=== PATIENT | female | born 1960 | race Caucasian/White ===

== ENCOUNTER 2018-11-04 08:55 | Emergency (ER) | payer MEDICAID ==
[~2018-11-04] VITALS: Ht 165.1 cm; Wt 68.9 kg
[2018-11-04] MEDS ORDERED: ALBUTER (09:12)
[2018-11-04] MEDS ORDERED: IBUPROFEN 800 MG (09:12)
[2018-11-04] MEDS ORDERED: ALBUTEROL SULFATE (09:12)
[2018-11-04] MEDS ORDERED: CEFDINIR 300 MG (09:12)
[2018-11-04] MEDS ORDERED: IPRATROPIUM (09:12)
[2018-11-04] MEDS ORDERED: [UNRECOGNIZED DRUG - OTHER] (09:12)
[2018-11-04 09:26] LABS: BASOPHILS # (AUTO) 0.1 10^3/uL (0.0-0.1); BASOPHILS % (AUTO) 1 % (0-10); EOSINOPHILS # (AUTO) 0.7 10^3/uL (0.0-0.3); EOSINOPHILS % (AUTO) 7 % (0-10); HEMATOCRIT 38 % (35-52); HEMOGLOBIN 12.8 G/DL (11.5-16.0); LYMPHOCYTES # (AUTO) 2.5 X 10^3 (1.0-4.0); LYMPHOCYTES % (AUTO) 28 % (12-44); MEAN CORPUSCULAR HEMOGLOBIN 29 PG (25-34); MEAN CORPUSCULAR HGB CONC 33 G/DL (32-36); MEAN CORPUSCULAR VOLUME 86 FL (80-99); MEAN PLATELET VOLUME 10.3 FL (7.4-10.4); MONOCYTES # (AUTO) 0.5 X 10^3 (0.0-1.0); MONOCYTES % (AUTO) 6 % (0-12); NEUTROPHILS # (AUTO) 5.2 X 10^3 (1.8-7.8); NEUTROPHILS % (AUTO) 58 % (42-75); PLATELET COUNT 220 10^3/uL (130-400); RED CELL DISTRIBUTION WIDTH 13.7 % (10.0-14.5); WHITE BLOOD COUNT 8.9 10^3/uL (4.3-11.0)
--- NOTE | 2018-11-04 09:26 | ED Respiratory ---
General Chief Complaint: Respiratory Problems Stated Complaint: SOA Nursing Triage Note: PT AMB TO RM 3 WITH COMPLAINT OF SOA. STATES WORSENED THROUGH MIDDLE OF THE NIGHT. WAS SEEN TWO WEEKS AGO AT [facility]. Source: patient, family Exam Limitations: no limitations History of Present Illness Date Seen by Provider: November 04, 2018 Time Seen by Provider: 09:21 Initial Comments This 58-year-old white female presents with a three-day history of increasing shortness of breath. The patient became worse in the [facility] precipitating her presentation to emergency departments morning. The patient has a history of COPD with exacerbations. She was placed on cefdinir without improvement. Allergies and Home Medications Allergies Coded Allergies: Penicillins (Verified Allergy, Unknown, 11/04/18) azithromycin (Verified Allergy, Unknown, 11/04/18) codeine (Verified Allergy, Unknown, 11/04/18) morphine (Verified Allergy, Unknown, 11/04/18) Patient Home Medication List Home Medication List Reviewed: Yes Review of Systems Review of Systems Constitutional: No chills, No fever EENTM: No hearing loss Respiratory: cough, short of breath Cardiovascular: No chest pain Gastrointestinal: No abdominal pain Genitourinary: no symptoms reported Musculoskeletal: no symptoms reported Skin: no symptoms reported Psychiatric/Neurological: No Symptoms Reported Hematologic/Lymphatic: No Symptoms Reported Immunological/Allergic: no symptoms reported Past Rucolhy-Gezguv-Lmicwa Hx Past Med/Social Hx: Reviewed Nursing Past Med/Soc Hx Patient Social History Alcohol Use: Denies Use Recreational Drug Use: No Smoking Status: Current Everyday Smoker Type Used: Cigarettes Recent Foreign Travel: No Contact w/Someone Who Travel: No Recent Infectious Disease Expo: No Recent Hopitalizations: No Immunizations Up To Date Tetanus Booster (TDap): Unknown PED Vaccines UTD: Yes Seasonal Allergies Seasonal Allergies: No Past Medical History Surgeries: Yes Appendectomy, Hysterectomy Respiratory: Yes Asthma, COPD Cardiac: No 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 oz. [id number]; BMI Method:Stated General Appearance: mild distress Eyes: Bilateral Eye Normal Inspection HEENT: normal ENT inspection Neck: full range of motion Respiratory: decreased breath sounds Cardiovascular: regular rate, rhythm Gastrointestinal: normal bowel sounds Extremities: normal inspection Neurologic/Psychiatric: no motor/sensory deficits Skin: normal color, warm/dry Progress/Results/Core Measures Suspected Sepsis Recent Fever Within 48 Hours: No Infection Criteria Present: None New/Unexplained Altered Menta: No Sepsis Screen: No Definite Risk SIRS Temperature:97.5 Pulse: 105 Respiratory Rate: 20 Laboratory Tests 11/04/18 09:04: White Blood Count 8.9 Blood Pressure 134 /72 Mean: 92 Laboratory Tests 11/04/18 09:04: Creatinine 0.94, Platelet Count 220, Total Bilirubin 0.3 Results/Orders Lab Results Laboratory Tests Test 11/04/18 09:04 Range/Units White Blood Count 8.9 4.3-11.0 10^3/uL Red Blood Count 4.45 4.35-5.85 10^6/uL Hemoglobin 12.8 11.5-16.0 G/DL Hematocrit 38 35-52 % Mean Corpuscular Volume 86 80-99 FL Mean Corpuscular Hemoglobin 29 25-34 PG Mean Corpuscular Hemoglobin Concent 33 32-36 G/DL Red Cell Distribution Width 13.7 10.0-14.5 % Platelet Count 220 130-400 10^3/uL Mean Platelet Volume 10.3 7.4-10.4 FL Neutrophils (%) (Auto) 58 42-75 % Lymphocytes (%) (Auto) 28 12-44 % Monocytes (%) (Auto) 6 0-12 % Eosinophils (%) (Auto) 7 0-10 % Basophils (%) (Auto) 1 0-10 % Neutrophils # (Auto) 5.2 1.8-7.8 X 10^3 Lymphocytes # (Auto) 2.5 1.0-4.0 X 10^3 Monocytes # (Auto) 0.5 0.0-1.0 X 10^3 Eosinophils # (Auto) 0.7 H 0.0-0.3 10^3/uL Basophils # (Auto) 0.1 0.0-0.1 10^3/uL Sodium Level 139 135-145 MMOL/L Potassium Level 4.3 3.6-5.0 MMOL/L Chloride Level 111 H 98-107 MMOL/L Carbon Dioxide Level 17 L 21-32 MMOL/L Anion Gap 11 5-14 MMOL/L Blood Urea Nitrogen 10 7-18 MG/DL Creatinine 0.94 0.60-1.30 MG/DL Estimat Glomerular Filtration Rate > 60 BUN/Creatinine Ratio 11 Glucose Level 132 H 70-105 MG/DL Calcium Level 9.3 8.5-10.1 MG/DL Corrected Calcium 9.0 8.5-10.1 MG/DL Total Bilirubin 0.3 0.1-1.0 MG/DL Aspartate Amino Transf (AST/SGOT) 18 5-34 U/L Alanine Aminotransferase (ALT/SGPT) 19 0-55 U/L Alkaline Phosphatase 121 40-136 U/L Total Protein 7.2 6.4-8.2 GM/DL Albumin 4.4 3.2-4.5 GM/DL My Orders Orders - FAVIAN REID MD Albuterol/Ipra Inhalation Soln (Duoneb I (11/04/18 09:30) Svn Small Volume Nebulizer (11/04/18 09:19) Cbc With Automated Diff (11/04/18 09:19) Comprehensive Metabolic Panel (11/04/18 09:19) Chest 1 View, Ap/Pa Only (11/04/18 09:19) Albuterol Pre-Mix Nebs (Rt) (Proventil (11/04/18 09:31) Albuterol Pre-Mix Nebs (Rt) (Proventil (11/04/18 09:35) Svn Small Volume Nebulizer (11/04/18 09:35) Medications Given in ED Current Medications Medications Dose Ordered Sig/Judy Route Start Time Stop Time Status Last Admin Dose Admin Albuterol/ Ipratropium 3 ml ONCE ONCE INH 11/04/18 09:30 11/04/18 09:31 DC 11/04/18 09:30 3 ML Vital Signs/I&O 11/04/18 11/04/18 11/04/18 08:59 09:31 09:38 Temp 97.5 Pulse 105 Resp 20 B/P (MAP) 134/72 (92) Pulse Ox 99 97 97 O2 Delivery Room Air Room Air Room Air Capillary Refill : Less Than 3 Seconds Blood Pressure Mean: 92 Progress Note : Time: 10:05 Progress Note Patient was much improved with IV Solu-Medrol and DuoNeb treatments. At this test the normal chest x-ray and CBC with the patient and her . We settled on a course of prednisone, albuterol inhaler, and Tussionex for cough at night. I asked she follow up with [facility] on Tuesday. I asked her to return if any problems or questions. Departure Impression Primary Impression: COPD exacerbation Disposition: HOME, SELF-CARE Condition: Improved Departure-Patient Inst. Decision time for Depature: 10:23 Referrals: [facility]Pavan KUHN,LOCAL PHYSICIAN (PCP) Primary Care Physician Patient Instructions: COPD Including Emphysema (DC) Add. Discharge Instructions: Prednisone, Ventolin inhaler, and Tussionex as prescribed. Close follow-up. Health on Tuesday. Return if any problems or questions. All discharge instructions reviewed with patient and/or family. Voiced understanding. FAVIAN REID MD November 04, 2018 09:26
[2018-11-04] MEDS ORDERED: RT-ALBUTEROL/IPRATROPIUM 3 ML (DUONEB) VIAL INH ONE (09:30)
[2018-11-04] MEDS ORDERED: RT-ALBUTEROL SULF 2.5 MG/3 ML PRE-MIX VIAL ONE (09:31)
[2018-11-04] MEDS ORDERED: RT-ALBUTEROL SULF 2.5 MG/3 ML PRE-MIX VIAL INH STA (09:35)
--- NOTE | 2018-11-04 09:38 | Diagnostic Imaging Report ---
EXAM: CHEST 1 VIEW, AP/PA ONLY INDICATION: Shortness of air. COMPARISON: None. FINDINGS: Normal heart size and central pulmonary vascularity. No focal pulmonary opacity, pleural effusion or pneumothorax. No acute osseous findings. IMPRESSION: No acute cardiopulmonary findings. Dictated by: Dictated on workstation # [id number]
[2018-11-04 09:39] LABS: ALANINE AMINOTRANSFERASE 19 U/L (0-55); ALBUMIN 4.4 GM/DL (3.2-4.5); ALKALINE PHOSPHATASE 121 U/L (40-136); BILIRUBIN,TOTAL 0.3 MG/DL (0.1-1.0); BUN/CREATININE RATIO 11; CALCIUM 9.3 MG/DL (8.5-10.1); CARBON DIOXIDE 17 MMOL/L (21-32); CHLORIDE 111 MMOL/L (98-107); CREATININE SERUM 0.94 MG/DL (0.60-1.30); GFR ESTIMATED > 60; GLUCOSE 132 MG/DL (70-105); POTASSIUM 4.3 MMOL/L (3.6-5.0); SODIUM 139 MMOL/L (135-145); TOTAL PROTEIN 7.2 GM/DL (6.4-8.2)
[2018-11-04 10:32] VITALS: BP 118/68
== END 2018-11-04 10:32 | disposition home or self-care (01) ==
LOC: ER 08:58
DX: J44.1 Chronic obstructive pulmonary disease with (acute) exacerbation (principal); E11.9 Type 2 diabetes mellitus without complications; F17.210 Nicotine dependence, cigarettes, uncomplicated; Z88.0 Allergy status to penicillin; Z90.710 Acquired absence of both cervix and uterus; Z88.1 Allergy status to other antibiotic agents; Z88.5 Allergy status to narcotic agent
CPT/HCPCS: 36415; 71045; 80053; 85025; 94640

== ENCOUNTER 2018-12-28 10:27 | Emergency (ER) | payer MEDICAID ==
[~2018-12-28] VITALS: Ht 165.1 cm; Wt 75.7 kg
[~2018-12-28 10:27] MED LIST: ALBUTER; ALBUTEROL SULFATE; CEFDINIR 300 MG; IBUPROFEN 800 MG; IPRATROPIUM; [UNRECOGNIZED DRUG - OTHER]
--- OUTSIDE RECORDS SUMMARY | 2018-12-28 10:32 | XMS REPORT | Continuity of Care Document ---
Demographics Address [address] [place] [id number] x Preferred Language Unknown Marital Status Unknown Christian Affiliation Unknown Race Unknown Ethnic Group Unknown Author Organization Unknown Address Unknown Allergies Active Description Code Type Severity Reaction Onset Reported/Identified Relationship to Patient Clinical Status Yes azithromycin [id number] Drug Allergy Unknown N/A 11/04/2018 Yes codeine [id number] Drug Allergy Unknown N/A 11/04/2018 Yes morphine [id number] Drug Allergy Unknown N/A 11/04/2018 Yes Penicillins [id number] Drug Allergy Unknown N/A 11/04/2018 Medications There is no data. Problems Date Dx Coded Attending Type Code Diagnosis Diagnosed By 11/07/2018 FAVIAN REID MD Ot E11.9 TYPE 2 DIABETES MELLITUS WITHOUT COMPLIC 11/07/2018 FAVIAN REID MD Ot F17.210 NICOTINE DEPENDENCE, CIGARETTES, UNCOMPL 11/07/2018 FAVIAN REID MD Ot J44.1 CHRONIC OBSTRUCTIVE PULMONARY DISEASE W 11/07/2018 FAVIAN REID MD Ot R06.02 SHORTNESS OF BREATH 11/07/2018 FAVIAN REID MD Ot Z88.0 ALLERGY STATUS TO PENICILLIN 11/07/2018 FAVIAN REID MD Ot Z88.1 ALLERGY STATUS TO OTHER ANTIBIOTIC AGENT 11/07/2018 FAVIAN REID MD Ot Z88.5 ALLERGY STATUS TO NARCOTIC AGENT STATUS 11/07/2018 FAVIAN REID MD Ot Z90.710 ACQUIRED ABSENCE OF BOTH CERVIX AND UTER Procedures There is no data. Results Test Result Range Complete blood count (CBC) with automated white blood cell (WBC) differential - 11/04/18 09:04 Blood leukocytes automated count (number/volume) 8.9 10*3/uL 4.3-11.0 Blood erythrocytes automated count (number/volume) 4.45 10*6/uL 4.35-5.85 Venous blood hemoglobin measurement (mass/volume) 12.8 g/dL 11.5-16.0 Blood hematocrit (volume fraction) 38 % 35-52 Automated erythrocyte mean corpuscular volume 86 [foz_us] 80-99 Automated erythrocyte mean corpuscular hemoglobin (mass per erythrocyte) 29 pg 25-34 Automated erythrocyte mean corpuscular hemoglobin concentration measurement (mass/volume) 33 g/dL 32-36 Automated erythrocyte distribution width ratio 13.7 % 10.0- 14.5 Automated blood platelet count (count/volume) 220 10*3/uL 130-400 Automated blood platelet mean volume measurement 10.3 [foz_us] 7.4-10.4 Automated blood neutrophils/100 leukocytes 58 % 42-75 Automated blood lymphocytes/100 leukocytes 28 % 12-44 Blood monocytes/100 leukocytes 6 % 0-12 Automated blood eosinophils/100 leukocytes 7 % 0-10 Automated blood basophils/100 leukocytes 1 % 0-10 Blood neutrophils automated count (number/volume) 5.2 10*3 1.8-7.8 Blood lymphocytes automated count (number/volume) 2.5 10*3 1.0-4.0 Blood monocytes automated count (number/volume) 0.5 10*3 0.0- 1.0 Automated eosinophil count 0.7 10*3/uL 0.0-0.3 Automated blood basophil count (count/volume) 0.1 10*3/uL 0.0-0.1 Comprehensive metabolic panel - 11/04/18 09:04 Serum or plasma sodium measurement (moles/volume) 139 mmol/L 135-145 Serum or plasma potassium measurement (moles/volume) 4.3 mmol/L 3.6-5.0 Serum or plasma chloride measurement (moles/volume) 111 mmol/L 98-107 Carbon dioxide 17 mmol/L 21-32 Serum or plasma anion gap determination (moles/volume) 11 mmol/L 5-14 Serum or plasma urea nitrogen measurement (mass/volume) 10 mg/dL 7-18 Serum or plasma creatinine measurement (mass/volume) 0.94 mg/dL 0.60-1.30 Serum or plasma urea nitrogen/creatinine mass ratio 11 NRG Serum or plasma creatinine measurement with calculation of estimated glomerular filtration rate > NRG Serum or plasma glucose measurement (mass/volume) 132 mg/dL 70-105 Serum or plasma calcium measurement (mass/volume) 9.3 mg/dL 8.5-10.1 Serum or plasma total bilirubin measurement (mass/volume) 0.3 mg/dL 0.1-1.0 Serum or plasma alkaline phosphatase measurement (enzymatic activity/volume) 121 U/L 40-136 Serum or plasma aspartate aminotransferase measurement (enzymatic activity/volume) 18 U/L 5-34 Serum or plasma alanine aminotransferase measurement (enzymatic activity/volume) 19 U/L 0-55 Serum or plasma protein measurement (mass/volume) 7.2 g/dL 6.4-8.2 Serum or plasma albumin measurement (mass/volume) 4.4 g/dL 3.2-4.5 CALCIUM CORRECTED 9.0 mg/dL 8.5-10.1 Encounters ACCT No. Visit Date/Time Discharge Status Pt. Type Provider Facility Loc./Unit Complaint [id number] 11/04/2018 08:58:00 11/04/2018 10:32:00 DIS Outpatient FRANKLIN HERNADEZ, FAVIAN [place] [facility] NORBERTO NORRIS
--- NOTE | 2018-12-28 10:38 | ED Upper Extremity ---
General Stated Complaint: FALL/ LEFT WRIST INJURY Source: patient Exam Limitations: no limitations History of Present Illness Date Seen by Provider: Dec 28, 2018 Time Seen by Provider: 10:37 Initial Comments To ER with reports of a fall, she fell last night onto an outstretched left arm and now has left wrist pain and limited range of motion. No other injury. Onset: yesterday Severity: moderate Pain/Injury Location: left wrist Method of Injury: fell Modifying Factors: Worse With Movement Allergies and Home Medications Allergies Coded Allergies: Penicillins (Verified Allergy, Unknown, 11/04/18) azithromycin (Verified Allergy, Unknown, 11/04/18) codeine (Verified Allergy, Unknown, 11/04/18) morphine (Verified Allergy, Unknown, 11/04/18) Patient Home Medication List Home Medication List Reviewed: Yes Review of Systems Constitutional: see HPI EENTM: see HPI Respiratory: no symptoms reported Cardiovascular: no symptoms reported Genitourinary: no symptoms reported Musculoskeletal: see HPI Skin: no symptoms reported Psychiatric/Neurological: No Symptoms Reported Past Xwxttte-Mxbcat-Seukft Hx Patient Social History Type Used: Cigarettes Recent Foreign Travel: No Contact w/Someone Who Travel: No Recent Hopitalizations: No Immunizations Up To Date Tetanus Booster (TDap): Unknown PED Vaccines UTD: Yes Seasonal Allergies Seasonal Allergies: No Past Medical History Surgeries: Yes Appendectomy, Hysterectomy Respiratory: Yes Asthma, COPD Cardiac: No 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 oz. 68.938651er; BMI Method:Stated General Appearance: WD/WN, no apparent distress HEENT: PERRL/EOMI, normal ENT inspection Respiratory: no respiratory distress, no accessory muscle use Shoulder: normal inspection, non-tender Elbow/Forearm: normal inspection, non-tender Wrist: No deformity; Yes limited ROM, Yes pain, Yes soft tissue tenderness; No swelling Hand: normal inspection, non-tender Neurologic/Psychiatric: alert, normal mood/affect, oriented x 3 Skin: normal color, warm/dry Progress/Results/Core Measures Results/Orders My Orders Orders - JOSE F ALBRECHT APRN Wrist, Left, 3 Views Or More (12/28/18 10:35) Vital Signs/I&O 12/28/18 10:34 Temp 96.7 Pulse 87 Resp 15 B/P (MAP) 99/60 (73) Pulse Ox 97 O2 Delivery Room Air Departure Impression Primary Impression: Wrist sprain Qualified Codes: S63.502A - Unspecified sprain of left wrist, initial encounter Disposition: HOME, SELF-CARE Condition: Stable Departure-Patient Inst. Decision time for Depature: 10:38 Referrals: [facility] (PCP/Family) Primary Care Physician Patient Instructions: Wrist Sprain (DC) Add. Discharge Instructions: 1. Return to ER for any concerns 2. Wear the brace for the next 2-3 days until the pain subsides. Tylenol and ibuprofen for pain control. JOSE F ALBRECHT APRN Dec 28, 2018 10:38
--- NOTE | 2018-12-28 10:59 | Diagnostic Imaging Report ---
INDICATION: Pain after fall. Three views were obtained. FINDINGS: The alignment is normal. There is no fracture or dislocation. Soft tissues are unremarkable. IMPRESSION: No acute fracture or dislocation Dictated by: Dictated on workstation # [id number]
[2018-12-28 11:07] VITALS: BP 99/60
== END 2018-12-28 11:07 | disposition home or self-care (01) ==
LOC: EDUNIT# 10:27 → ER 10:29
DX: S63.502A Unspecified sprain of left wrist, initial encounter (principal); J44.9 Chronic obstructive pulmonary disease, unspecified; E11.9 Type 2 diabetes mellitus without complications; Z90.49 Acquired absence of other specified parts of digestive tract; Z88.0 Allergy status to penicillin; Z88.1 Allergy status to other antibiotic agents; Z88.5 Allergy status to narcotic agent; Z90.710 Acquired absence of both cervix and uterus; W19.XXXA Unspecified fall, initial encounter
CPT/HCPCS: 73110

== ENCOUNTER 2019-07-12 14:43 | Emergency (ER) | payer MEDICAID ==
[~2019-07-12] VITALS: Ht 165 cm; Wt 71.0 kg
[2019-07-12] MEDS ORDERED: IPRA3AMP31 (15:11)
[2019-07-12] MEDS ORDERED: FLUT1AER (15:11)
[2019-07-12] MEDS ORDERED: MUPI22OI2 NSEACH (15:38)
[2019-07-12] MEDS ORDERED: D-ME118S33 PO (15:38)
[2019-07-12] MEDS ORDERED: RT-ALBUINH IH (15:38)
[2019-07-12] MEDS ORDERED: PRD20T PO (15:38)
[2019-07-12] MEDS ORDERED: DOXY100T2 PO (15:38)
--- NOTE | 2019-07-12 15:39 | ED Cough/URI ---
General Chief Complaint: Cough/Cold/Flu Symptoms Stated Complaint: ABSCESS TOOTH;CHEST CONGESTION Nursing Triage Note: PT CO OF COLD COUGH SX FOR APPROX 2 WEEKS, PT STATES HAD ABCESS IN NOSE THAT HAD GREEN DRAINAGE. Sepsis Screen: Possible Sepsis Risk Source: patient Exam Limitations: no limitations History of Present Illness Date Seen by Provider: Jul 12, 2019 Time Seen by Provider: 15:34 Initial Comments Two-week history of productive cough. She also had a sore in her mouth around one of her front top teeth, that she pushed on it the other day and noticed pus to have come out the left side of her nose. Timing/Duration: constant Severity/Quality: dry cough Associated Symptoms: cough Allergies and Home Medications Allergies Coded Allergies: Penicillins (Verified Allergy, Unknown, 11/04/18) azithromycin (Verified Allergy, Unknown, 11/04/18) codeine (Verified Allergy, Unknown, 11/04/18) morphine (Verified Allergy, Unknown, 11/04/18) Patient Home Medication List Home Medication List Reviewed: Yes Review of Systems Review of Systems Constitutional: see HPI EENTM: other Respiratory: see HPI Genitourinary: no symptoms reported Musculoskeletal: no symptoms reported Skin: no symptoms reported Psychiatric/Neurological: No Symptoms Reported Hematologic/Lymphatic: No Symptoms Reported Past Obrbsjl-Wrikcz-Pkdnxs Hx Patient Social History Alcohol Use: Denies Use Recreational Drug Use: No Smoking Status: Current Everyday Smoker Type Used: Cigarettes 2nd Hand Smoke Exposure: Yes Recent Foreign Travel: No Contact w/Someone Who Travel: No Recent Infectious Disease Expo: No Recent Hopitalizations: No Immunizations Up To Date Tetanus Booster (TDap): Unknown PED Vaccines UTD: Yes Date of Pneumonia Vaccine: Mar 20, 2019 Date of Influenza Vaccine: Mar 20, 2019 Seasonal Allergies Seasonal Allergies: No Past Medical History Surgeries: Yes (CARPAL TUNNEL) Appendectomy, Hysterectomy Respiratory: Yes Asthma, COPD Cardiac: No 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 oz. 75.533874ca; 26.00 BMI Method:Stated General Appearance: WD/WN, no apparent distress Eyes: Bilateral Eye Normal Inspection, Bilateral Eye PERRL, Bilateral Eye EOMI HEENT: PERRL/EOMI, normal ENT inspection, TMs normal, other (no visible abscess inside either nostril that I can see. No facial cellulitis) Neck: non-tender, full range of motion; No lymphadenopathy (R), No lymphadenopathy (L) Respiratory: no respiratory distress, no accessory muscle use, decreased breath sounds; No crackles, No rales, No wheezing Cardiovascular: regular rate, rhythm Gastrointestinal: normal bowel sounds, non tender, soft Neurologic/Psychiatric: alert, normal mood/affect, oriented x 3 Skin: normal color Progress/Results/Core Measures Suspected Sepsis Recent Fever Within 48 Hours: Yes Infection Criteria Present: Suspected New Infection New/Unexplained Altered Menta: No Sepsis Screen: Possible Sepsis Risk SIRS Temperature: Pulse: 94 Respiratory Rate: 18 Blood Pressure 117 /72 Mean: 87 Results/Orders Vital Signs/I&O 07/12/19 15:05 Temp 36.6 Pulse 94 Resp 18 B/P (MAP) 117/72 (87) Pulse Ox 95 Capillary Refill : Less Than 3 Seconds Blood Pressure Mean: 87 Departure Impression Primary Impression: Bronchitis Disposition: 01 HOME, SELF-CARE Condition: Stable Departure-Patient Inst. Decision time for Depature: 15:36 Referrals: [facility] (PCP/Family) Primary Care Physician Patient Instructions: Acute Bronchitis Add. Discharge Instructions: 1. Apply the ointment inside the nostril with a Q-tip twice daily for 5 days. Antibiotics as directed. Steroids as directed All discharge instructions reviewed with patient and/or family. Voiced understanding. Scripts Mupirocin (Mupirocin) 22 Gm Oint...g. 1 GM NSEACH BID, #1 TUBE Prov: JOSE F ALBRECHT ACOUSTICAL INSTALLER 07/12/19 Doxycycline Hyclate (Doxycycline Hyclate) 100 Mg Tablet 100 MG PO BID, #20 TAB 0 Refills Prov: JOSE F ALBRECHT APRN 07/12/19 Prednisone (Prednisone) 20 Mg Tab 40 MG PO DAILY, #8 TAB 0 Refills Prov: JOSE F ALBRECHT APRN 07/12/19 Albuterol Sulfate (PROAIR HFA) 1 Puff Puff 2 PUFF IH Q4H PRN for WHEEZING, #1 PUFF 1 PUFF = 90 MCG Prov: JOSE F ALBRECHT APRN 07/12/19 D-Methorphan Hb/P-Epd HCl/Bpm (Bromfed Dm Cough Syrup) 118 Ml Syrup 5 ML PO Q4H PRN for COUGH for 7 Days, #60 ML Prov: JOSE F ALBRECHT APRN 07/12/19 JOSE F ALBRECHT APRN Jul 12, 2019 15:39
[2019-07-12 15:46] VITALS: BP 132/74
== END 2019-07-12 15:46 | disposition home or self-care (01) ==
LOC: EDUNIT# 14:43 → ER 14:44
DX: J44.9 Chronic obstructive pulmonary disease, unspecified (principal); E11.9 Type 2 diabetes mellitus without complications; F17.210 Nicotine dependence, cigarettes, uncomplicated; Z88.0 Allergy status to penicillin; Z88.1 Allergy status to other antibiotic agents; Z88.5 Allergy status to narcotic agent; Z90.710 Acquired absence of both cervix and uterus; Z90.49 Acquired absence of other specified parts of digestive tract
CPT/HCPCS: 99282

== ENCOUNTER → 2020-09-05 | Outpatient (CLI) | payer MEDICAID ==
[~2020-09-05] MED LIST changes: +D-ME118S33 PO; +DOXY100T2 PO; +FLUT1AER; +IPRA3AMP31; +MUPI22OI2 NSEACH; +PRD20T PO; +RT-ALBUINH IH
--- NOTE | 2020-09-05 15:35 | Diagnostic Imaging Report ---
CT Lung Screening INDICATION: 42 pack year smoking history for baseline low-dose CT screening TECHNIQUE: Noncontrast, low-dose CT imaging performed according to the lung cancer screening protocol. Auto Exposure Controls were utilize during the CT exam to meet ALARA standards for radiation dose reduction. COMPARISON: Baseline FINDINGS: There are small linear subpleural scars in the bilateral pulmonary apices. No dominant or suspicious pulmonary nodule. No pneumonia or failure pattern. No effusion or pneumothorax. No bronchiectasis, blebs, bullous disease or air cysts. The thoracic aorta is nonaneurysmal. There is no pleural or pericardial effusion. No suspicious chest wall abnormality. IMPRESSION: IMPRESSION: No suspicious lung mass or evidence for lung cancer. Continued low-dose CT follow-up in one year's time recommended. LUNG-RADS CATEGORY:Category 1 MODIFIER:None OTHER SIGNIFICANT FINDINGS:None Dictated by: Dictated on workstation # [id number]
== END ==
LOC: RAD 13:43
PROVIDERS: ATTEND Nurse Practitioner Family
DX: Z12.2 Encounter for screening for malignant neoplasm of respiratory organs (principal); J44.9 Chronic obstructive pulmonary disease, unspecified; Z87.891 Personal history of nicotine dependence
CPT/HCPCS: 71271

== ENCOUNTER 2020-10-01 05:34 | Outpatient (CLI) | payer MEDICAID ==
[~2020-10-01] VITALS: Ht 162.6 cm; Wt 81.4 kg
[~2020-10-01 05:34] MED LIST changes: -FLUT1AER; +FLUT1AER IH
[2020-10-01] MEDS ORDERED: RT-ALBUINH IH ×2 (10:35)
[2020-10-01] MEDS ORDERED: UMEC62.5 IH ×2 (10:35)
[2020-10-01] MEDS ORDERED: CETI10TA17 PO ×2 (10:35)
== END 2020-10-01 10:38 | disposition home or self-care (01) ==
LOC: PREOP 05:34
PROVIDERS: ATTEND Specialist
DX: Z01.818 Encounter for other preprocedural examination (principal)

== ENCOUNTER 2020-10-03 07:51 | Day surgery (SDC) | payer MEDICAID ==
[~2020-10-03] VITALS: Ht 162.6 cm; Wt 81.4 kg
[~2020-10-03 07:51] MED LIST changes: +CETI10TA17 PO; +UMEC62.5 IH
[2020-10-03] MEDS ORDERED: LIDOCAINE PF 1% 2 ML VIAL IR PRN (08:30)
[2020-10-03] MEDS ORDERED: MOXIFLOXACIN OPHTH SOLN 5 MG/ML 0.3 ML SYRINGE OP ONE (08:30)
[2020-10-03] MEDS ORDERED: POVIDONE (BETADINE) OPHTH SOLN 5% 30 ML OP ONE (08:30)
[2020-10-03] MEDS ORDERED: TIMOLOL MALEATE 0.5% 5 ML (TIMOPTIC) BTL OU PRN (08:30)
[2020-10-03] MEDS: TETRACAINE 0.5% OPHTH SOLN 4 ML BTL (SINGLE DOSE ONLY) OU PRN ×4 (08:34→08:50)
[2020-10-03 08:35] VITALS: BP 119/89
[2020-10-03] MEDS: TROPICAMIDE 1% OPH SOLN (MYDRIACYL) 15 ML BTL OP SCH ×3 (08:40→08:50)
[2020-10-03] MEDS: PHENYLEPHRINE 10% OPHTH (NEO-SYN) 5 ML BTL OU SCH ×3 (08:40→08:50)
[2020-10-03] MEDS ORDERED: MIDAZOLAM 2 MG/2 ML (VERSED) VIAL ONE (08:42)
--- NOTE | 2020-10-03 09:20 | Ophthalmologist Pre-Op Note ---
Pre-Operative Progress Note H&P Reviewed The H&P was reviewed, patient examined and no changes noted. Date H&P Reviewed: Oct 03, 2020 Time H&P Reviewed: 09:20 Pre-Op Dx Cataract, Left Eye DEZ SHOOK MD Oct 03, 2020 09:20
--- NOTE | 2020-10-03 09:41 | Ophthalmology Operative Report ---
Cataract removal/placement IOL PREOPERATIVE DIAGNOSIS: Cataract Left Eye POSTOPERATIVE DIAGNOSIS: Cataract Left Eye PROCEDURE: Cataract removal and placement of posterior chamber implant, left eye SURGEON: Vinnie Shook ANESTHESIA: Topical with sedation COMPLICATIONS: None ESTIMATED BLOOD LOSS: Minimal DESCRIPTION OF PROCEDURE: After proper informed consent was obtained, the patient, a 60 female, was taken to the Operating Room and the left eye was anesthetized with tetracaine. The left eye was then prepped and draped in the usual manner. A wire lid speculum was placed. A paracentesis was made at the left hand position. Preservative free lidocaine was injected into the anterior chamber followed by viscoelastic. A clear corneal incision was made in the temporal position. A capsulorrhexis was preformed and the central nuclear and cortical material were removed. The posterior capsule was polished and an Abdiaziz 21.0 [id number] was placed into the capsular bag. The residual viscoelastic was aspirated and balanced saline solution was injected into the anterior chamber. Moxifloxacin was injected into the anterior chamber. The wound was checked and found to be water tight. The patient tolerated the procedure well without complications. VINNIE SHOOK MD Oct 03, 2020 09:41
--- NOTE | 2020-10-03 09:43 | Anesthesia-General Post-Op ---
MAC Patient Condition Mental Status/LOC: Same as Preop Cardiovascular: Satisfactory Nausea/Vomiting: Absent Respiratory: Satisfactory Pain: Controlled Complications: Absent Post Op Complications Complications None Follow Up Care/Instructions Patient Instructions None needed. Anesthesiology Discharge Order Discharge Order Patient is doing well, no complaints, stable vital signs, no apparent adverse anesthesia problems. No complications reported per nursing. BRANDON ROGERS CRNA Oct 03, 2020 09:43
[2020-10-03 09:47] VITALS: BP 115/61
[2020-10-03] MEDS ORDERED: acetaZOLAMIDE ER 500 MG CAP (DIAMOX SEQUELS) PO ONE (10:00)
== END 2020-10-03 09:50 | disposition home or self-care (01) ==
LOC: SDC 07:51
PROVIDERS: ATTEND Specialist
DX: E11.36 Type 2 diabetes mellitus with diabetic cataract (principal); H25.12 Age-related nuclear cataract, left eye; J45.909 Unspecified asthma, uncomplicated; E78.00 Pure hypercholesterolemia, unspecified; F17.210 Nicotine dependence, cigarettes, uncomplicated; Z79.51 Long term (current) use of inhaled steroids; Z79.899 Other long term (current) drug therapy; Z88.0 Allergy status to penicillin; Z88.1 Allergy status to other antibiotic agents; Z88.5 Allergy status to narcotic agent; Z88.8 Allergy status to other drugs, medicaments and biological substances; Z90.710 Acquired absence of both cervix and uterus; Z85.828 Personal history of other malignant neoplasm of skin; Z80.3 Family history of malignant neoplasm of breast; Z80.9 Family history of malignant neoplasm, unspecified; Z82.3 Family history of stroke
CPT/HCPCS: 66984; 82962; V2632

== ENCOUNTER 2020-10-24 09:40 | Day surgery (SDC) | payer MEDICAID ==
[~2020-10-24] VITALS: Ht 162.6 cm; Wt 79.1 kg
[2020-10-24] MEDS ORDERED: TIMOLOL MALEATE 0.5% 5 ML (TIMOPTIC) BTL OU PRN (09:45)
[2020-10-24] MEDS ORDERED: POVIDONE (BETADINE) OPHTH SOLN 5% 30 ML OP ONE (09:45)
[2020-10-24] MEDS ORDERED: LIDOCAINE PF 1% 2 ML VIAL IR PRN (09:45)
[2020-10-24] MEDS ORDERED: MOXIFLOXACIN OPHTH SOLN 5 MG/ML 0.3 ML SYRINGE OP ONE (09:45)
[2020-10-24 09:50] VITALS: BP 103/70
[2020-10-24] MEDS: TETRACAINE 0.5% OPHTH SOLN 4 ML BTL (SINGLE DOSE ONLY) OU PRN ×4 (09:50→10:15)
[2020-10-24] MEDS: PHENYLEPHRINE 10% OPHTH (NEO-SYN) 5 ML BTL OU SCH ×3 (10:01→10:15)
[2020-10-24] MEDS: TROPICAMIDE 1% OPH SOLN (MYDRIACYL) 15 ML BTL OP SCH ×3 (10:01→10:15)
[2020-10-24] MEDS ORDERED: MIDAZOLAM 2 MG/2 ML (VERSED) VIAL ONE (10:34)
--- NOTE | 2020-10-24 10:46 | Ophthalmologist Pre-Op Note ---
Pre-Operative Progress Note H&P Reviewed The H&P was reviewed, patient examined and no changes noted. Date H&P Reviewed: October 24, 2020 Time H&P Reviewed: 10:45 Pre-Op Dx Cataract, Right Eye DEZ SHOOK MD October 24, 2020 10:46
--- NOTE | 2020-10-24 11:09 | Ophthalmology Operative Report ---
Cataract removal/placement IOL PREOPERATIVE DIAGNOSIS: Cataract Right Eye POSTOPERATIVE DIAGNOSIS: Cataract Right Eye PROCEDURE: Cataract removal and placement of posterior chamber implant, right eye SURGEON: Vinnie Shook ANESTHESIA: Topical with sedation COMPLICATIONS: None ESTIMATED BLOOD LOSS: Minimal DESCRIPTION OF PROCEDURE: After proper informed consent was obtained, the patient, a 60 female, was taken to the Operating Room and the right eye was anesthetized with tetracaine. The right eye was then prepped and draped in the usual manner. A wire lid speculum was placed. A paracentesis was made at the left hand position. Preservative free lidocaine was injected into the anterior chamber followed by viscoelastic. A clear corneal incision was made in the temporal position. A capsulorrhexis was preformed and the central nuclear and cortical material were removed. The posterior capsule was polished and Abdiaziz [id number] 21.5 IOL was placed into the capsular bag. The residual viscoelastic was aspirated and balanced saline solution was injected into the anterior chamber. Moxifloxacin was injected into the anterior chamber. The wound was checked and found to be water tight. The patient tolerated the procedure well without complications. VINNIE SHOOK MD October 24, 2020 11:09
[2020-10-24 11:20] VITALS: BP 128/83
[2020-10-24] MEDS ORDERED: acetaZOLAMIDE ER 500 MG CAP (DIAMOX SEQUELS) PO ONE (11:30)
--- NOTE | 2020-10-24 13:05 | Anesthesia-General Post-Op ---
MAC Patient Condition Mental Status/LOC: Same as Preop Cardiovascular: Satisfactory Nausea/Vomiting: Absent Respiratory: Satisfactory Pain: Controlled Complications: Absent Post Op Complications Complications None Follow Up Care/Instructions Patient Instructions None needed. Anesthesiology Discharge Order Discharge Order Patient is doing well, no complaints, stable vital signs, no apparent adverse anesthesia problems. No complications reported per nursing. OBED STANTON CRNA October 24, 2020 13:05
== END 2020-10-24 11:20 | disposition home or self-care (01) ==
LOC: SDC 09:40
PROVIDERS: ATTEND Specialist
DX: E11.36 Type 2 diabetes mellitus with diabetic cataract (principal); H25.11 Age-related nuclear cataract, right eye; J45.909 Unspecified asthma, uncomplicated; E78.00 Pure hypercholesterolemia, unspecified; F17.210 Nicotine dependence, cigarettes, uncomplicated; Z79.51 Long term (current) use of inhaled steroids; Z85.828 Personal history of other malignant neoplasm of skin; Z80.3 Family history of malignant neoplasm of breast; Z80.8 Family history of malignant neoplasm of other organs or systems
CPT/HCPCS: 66984; V2632

== ENCOUNTER 2020-12-30 18:43 | Emergency (ER) | payer MEDICAID ==
[~2020-12-30] VITALS: Ht 158 cm; Wt 81.0 kg
--- NOTE | 2020-12-30 19:42 | ED Abdominal Pain ---
General Chief Complaint: Abdominal/GI Problems Stated Complaint: STOMACH PAIN, CONSTIPATION Source of Information: Patient Exam Limitations: No Limitations History of Present Illness Date Seen by Provider: Dec 30, 2020 Time Seen by Provider: 19:33 Initial Comments This is a 60-year-old female who presents to the ER with complaints of abdominal pain, constipation. Allergies and Home Medications Allergies Coded Allergies: Penicillins (Verified Allergy, Unknown, 11/04/18) azithromycin (Verified Allergy, Unknown, 11/04/18) codeine (Verified Allergy, Unknown, 11/04/18) diazepam (Verified Allergy, Unknown, severe vomiting, 09/30/20) morphine (Verified Allergy, Unknown, 11/04/18) Home Medications Albuterol Sulfate 1 Puff Puff, 2 PUFF IH Q4H PRN for WHEEZING, (Reported) 1 PUFF = 90 MCG Cetirizine HCl 10 Mg Tablet, 10 MG PO DAILY, (Reported) Fluticasone/Vilanterol 1 Each Blst.w.dev, 1 PUFF IH BID, (Reported) Umeclidinium [place] 62.5 Mcg Blst.w.dev, 62.5 MCG IH DAILY, (Reported) Past Twuhrts-Lchvcw-Rcxznf Hx Immunizations Up To Date Tetanus Booster (TDap): Unknown PED Vaccines UTD: Yes Seasonal Allergies Seasonal Allergies: No Past Medical History Surgeries: Yes (CARPAL TUNNEL) Appendectomy, Hysterectomy Respiratory: Yes Asthma, COPD Cardiac: No 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 oz. 75.784961fk; 26.00 BMI Method:Stated Progress/Results/Core Measures Results/Orders Lab Results Laboratory Tests Test 12/30/20 19:20 12/30/20 19:50 Range/Units White Blood Count 8.0 4.3-11.0 10^3/uL Red Blood Count 4.59 3.80-5.11 10^6/uL Hemoglobin 13.2 11.5-16.0 g/dL Hematocrit 41 35-52 % Mean Corpuscular Volume 89 80-99 fL Mean Corpuscular Hemoglobin 29 25-34 pg Mean Corpuscular Hemoglobin Concent 32 32-36 g/dL Red Cell Distribution Width 12.8 10.0-14.5 % Platelet Count 248 130-400 10^3/uL Mean Platelet Volume 10.4 9.0-12.2 fL Immature Granulocyte % (Auto) 0 % Neutrophils (%) (Auto) 53 42-75 % Lymphocytes (%) (Auto) 38 12-44 % Monocytes (%) (Auto) 6 0-12 % Eosinophils (%) (Auto) 2 0-10 % Basophils (%) (Auto) 1 0-10 % Neutrophils # (Auto) 4.3 1.8-7.8 10^3/uL Lymphocytes # (Auto) 3.1 1.0-4.0 10^3/uL Monocytes # (Auto) 0.5 0.0-1.0 10^3/uL Eosinophils # (Auto) 0.2 0.0-0.3 10^3/uL Basophils # (Auto) 0.1 0.0-0.1 10^3/uL Immature Granulocyte # (Auto) 0.0 0.0-0.1 10^3/uL Sodium Level 140 135-145 MMOL/L Potassium Level 4.2 3.6-5.0 MMOL/L Chloride Level 108 H 98-107 MMOL/L Carbon Dioxide Level 22 21-32 MMOL/L Anion Gap 10 5-14 MMOL/L Blood Urea Nitrogen 10 7-18 MG/DL Creatinine 1.07 0.60-1.30 MG/DL Estimat Glomerular Filtration Rate 52 BUN/Creatinine Ratio 9 Glucose Level 97 70-105 MG/DL Calcium Level 9.1 8.5-10.1 MG/DL Corrected Calcium 8.9 8.5-10.1 MG/DL Total Bilirubin 0.3 0.1-1.0 MG/DL Aspartate Amino Transf (AST/SGOT) 26 5-34 U/L Alanine Aminotransferase (ALT/SGPT) 25 0-55 U/L Alkaline Phosphatase 127 40-136 U/L Total Protein 7.1 6.4-8.2 GM/DL Albumin 4.3 3.2-4.5 GM/DL Urine Color YELLOW Urine Clarity CLEAR Urine pH 6.0 5-9 Urine Specific [place] 1.020 1.016-1.022 Urine Protein NEGATIVE NEGATIVE Urine Glucose (UA) NEGATIVE NEGATIVE Urine Ketones NEGATIVE NEGATIVE Urine Nitrite NEGATIVE NEGATIVE Urine Bilirubin NEGATIVE NEGATIVE Urine Urobilinogen 1.0 < = 1.0 MG/DL Urine Leukocyte Esterase NEGATIVE NEGATIVE Urine RBC (Auto) NEGATIVE NEGATIVE Urine RBC NONE /HPF Urine WBC 0-2 /HPF Urine Crystals PRESENT H /LPF Urine Amorphous Sediment FEW PATSY URATES H /LPF Urine Bacteria FEW H /HPF Urine Casts NONE /LPF Urine Mucus NEGATIVE /LPF Urine Culture Indicated YES My Orders Orders - ORLANDO LEA SUPERVISOR TRAVEL TRAILER Cbc With Automated Diff (12/30/20 19:42) Comprehensive Metabolic Panel (12/30/20 19:42) Ua Culture If Indicated (12/30/20 19:42) Acute Abd Series (12/30/20 19:42) Ondansetron Injection (Zofran Injectio (12/30/20 20:15) Ketorolac Injection (Toradol Injection) (12/30/20 20:15) Urine Culture (12/30/20 19:50) Lactulose Oral Solution (Enulose Oral So (12/30/20 20:45) Medications Given in ED Current Medications Medications Dose Ordered Sig/Judy Route Start Time Stop Time Status Last Admin Dose Admin Ketorolac Tromethamine 30 mg ONCE ONCE IVP 12/30/20 20:15 12/30/20 20:16 DC 12/30/20 20:18 30 MG Ondansetron HCl 4 mg ONCE ONCE IVP 12/30/20 20:15 12/30/20 20:16 DC 12/30/20 20:18 4 MG Vital Signs/I&O 12/30/20 19:16 Temp 36.6 Pulse 94 Resp 20 B/P (MAP) 134/66 (88) Pulse Ox 98 O2 Delivery Room Air Departure Impression Primary Impression: Constipation Disposition: 01 HOME, SELF-CARE Condition: Improved Departure-Patient Inst. Decision time for Depature: 20:44 Referrals: [facility] (PCP/Family) Primary Care Physician Patient Instructions: Constipation, Adult ED Add. Discharge Instructions: Plan: 1. Drink plenty of fluids. 2. Use Miralax twice a day until you achieve a bowel movement. 3. Eat foods high in fiber whole wheats, apples, pears, green leafy vegetables. You can also take a fiber supplement. 4. Return if you are having vomiting, increasing abdominal pain, and inability to pass gas. 5. Return for any new, concerning, or worsening symptoms. All discharge instructions reviewed with patient and/or family. Voiced understanding. ORLANDO LEA SUPERVISOR TRAVEL TRAILER Dec 30, 2020 19:42
[2020-12-30 19:48] LABS: BASOPHILS # (AUTO) 0.1 10^3/uL (0.0-0.1); BASOPHILS % (AUTO) 1 % (0-10); EOSINOPHILS # (AUTO) 0.2 10^3/uL (0.0-0.3); EOSINOPHILS % (AUTO) 2 % (0-10); HEMATOCRIT 41 % (35-52); HEMOGLOBIN 13.2 g/dL (11.5-16.0); LYMPHOCYTES # (AUTO) 3.1 10^3/uL (1.0-4.0); LYMPHOCYTES % (AUTO) 38 % (12-44); MEAN CORPUSCULAR HEMOGLOBIN 29 pg (25-34); MEAN CORPUSCULAR HGB CONC 32 g/dL (32-36); MEAN CORPUSCULAR VOLUME 89 fL (80-99); MEAN PLATELET VOLUME 10.4 fL (9.0-12.2); MONOCYTES # (AUTO) 0.5 10^3/uL (0.0-1.0); MONOCYTES % (AUTO) 6 % (0-12); NEUTROPHILS # (AUTO) 4.3 10^3/uL (1.8-7.8); NEUTROPHILS % (AUTO) 53 % (42-75); PLATELET COUNT 248 10^3/uL (130-400)
[2020-12-30 19:57] LABS: BILIRUBIN,URINE NEGATIVE (NEGATIVE); CLARITY,URINE CLEAR; COLOR,URINE YELLOW; GLUCOSE, URINE (UA) NEGATIVE (NEGATIVE); KETONES,URINE NEGATIVE (NEGATIVE); LEUKOCYTE ESTERASE ,URINE NEGATIVE (NEGATIVE); NITRITE,URINE NEGATIVE (NEGATIVE); PROTEIN,URINE NEGATIVE (NEGATIVE)
[2020-12-30 20:00] LABS: ALBUMIN 4.3 GM/DL (3.2-4.5); BILIRUBIN,TOTAL 0.3 MG/DL (0.1-1.0); CALCIUM 9.1 MG/DL (8.5-10.1); CREATININE SERUM 1.07 MG/DL (0.60-1.30); POTASSIUM 4.2 MMOL/L (3.6-5.0); TOTAL PROTEIN 7.1 GM/DL (6.4-8.2)
[2020-12-30 20:03] LABS: AMORPHOUS SEDIMENT,UR FEW AMOR URATES /LPF; BACTERIA,URINE FEW /HPF; WBC,URINE 0-2 /HPF
[2020-12-30] MEDS ORDERED: KETOROLAC 30 MG/ML VIAL IVP ONE (20:15)
[2020-12-30] MEDS ORDERED: ONDANSETRON 4 MG/2 ML (SDV) Z0FRAN IVP ONE (20:15)
--- NOTE | 2020-12-30 20:21 | Diagnostic Imaging Report ---
CLINICAL INDICATION: Patient with right upper quadrant pain with constipation. Patient states she vomited once. EXAMS: X-ray of the chest PA view and x-ray of the abdomen supine and upright views. COMPARISONS: None. FINDINGS: LUNGS/ PLEURA: Lungs are clear. There is no pneumothorax. There is no pleural effusion. MEDIASTINUM: Unremarkable. PULMONARY VASCULATURE: Unremarkable. HEART: Unremarkable. BONES/ EXTRATHORACIC SOFT TISSUE: Unremarkable. ABDOMEN AND PELVIS: Unremarkable x-ray of the abdomen with nonobstructed bowel gas pattern. There is no evidence of abdominal free air. There are several nonspecific air-fluid levels within the colon seen. There is a small to moderate amount of stool in the sigmoid colon region. There are no focal calcifications overlying the expected regions/ pathways of both kidneys, ureters, and bladder regions. IMPRESSION: 1: There is no radiographic evidence of acute cardiopulmonary process. 2: There are several nonspecific air-fluid levels within the colon with no intestinal obstruction or dilation seen. There is a small to moderate amount of stool in the sigmoid colon region. Dictated by: Dictated on workstation # [id number]
[2020-12-30] MEDS ORDERED: LACTULOSE SYRUP 10GM/15ML (ENULOSE) 30ML UDC PO ONE (20:45)
[2020-12-30 21:24] VITALS: BP 134/66
== END 2020-12-30 21:20 | disposition home or self-care (01) ==
LOC: EDUNIT# 18:43 → ER 18:46
DX: K59.00 Constipation, unspecified (principal); J44.9 Chronic obstructive pulmonary disease, unspecified; E11.9 Type 2 diabetes mellitus without complications
CPT/HCPCS: 36415; 74022; 80053; 81000; 85025; 87088

== ENCOUNTER 2021-04-10 21:15 | Emergency (ER) | payer MEDICAID ==
[~2021-04-10] VITALS: Ht 162.5 cm; Wt 75.0 kg
[2021-04-10] MEDS ORDERED: CLINDAMYCIN 150 MG (CLEOCIN) CAP PO SCH (21:30)
[2021-04-10] MEDS ORDERED: CLIN300C12 PO (21:33)
--- NOTE | 2021-04-10 21:33 | ED EENT ---
History of Present Illness General Chief Complaint: Dental Problems/Pain Stated Complaint: LIP SWELLING/ABSCESS Source: patient Exam Limitations: no limitations History of Present Illness Date Seen by Provider: Apr 10, 2021 Time Seen by Provider: 21:28 Initial Comments 61-year-old female coming in due to dental pain. She has been having upper teeth pain with some discharge for the past 3 days. She says she gets frequent tooth infections, and she knows she needs a dentist. No fevers as of yet. She does have an appointment with a dentist within the next couple weeks now. Denies any facial swelling, throat pain, difficulty speaking, difficulty swallowing, neck pain or stiffness, fever, or any other concerns. Allergies and Home Medications Allergies Coded Allergies: Penicillins (Verified Allergy, Unknown, 11/04/18) azithromycin (Verified Allergy, Unknown, 11/04/18) codeine (Verified Allergy, Unknown, 11/04/18) diazepam (Verified Allergy, Unknown, severe vomiting, 09/30/20) morphine (Verified Allergy, Unknown, 11/04/18) Patient Home Medication List Home Medication List Reviewed: Yes Albuterol Sulfate (Proair Hfa) 1 Puff Puff, 2 PUFF IH Q4H PRN for WHEEZING, (Reported) Entered as Reported by: SHAMEKA RODRIGUEZ on 10/01/20 1035 Cetirizine HCl (Cetirizine HCl) 10 Mg Tablet, 10 MG PO DAILY, (Reported) Entered as Reported by: SHAMEKA RODRIGUEZ on 10/01/20 1035 Clindamycin HCl (Clindamycin HCl) 300 Mg Capsule, 300 MG PO QID Prescribed by: LOU JO on 04/10/212132 Fluticasone/Vilanterol (Breo Ellipta 100-25 Mcg INH) 1 Each Blst.w.dev, 1 PUFF IH BID, (Reported) Entered as Reported by: FLACA HARRISON on 07/12/19 1511 Umeclidinium [place] (Incruse Ellipta) 62.5 Mcg Blst.w.dev, 62.5 MCG IH DAILY, (Reported) Entered as Reported by: SHAMEKA RODRIGUEZ on 10/01/20 1035 Review of Systems Review of Systems Constitutional: no symptoms reported Eyes: No Symptoms Reported Ears: No Symptoms Reported Nose: no symptoms reported Mouth: loose teeth, pain, swelling Throat: no symptoms reported Respiratory: no symptoms reported Cardiovascular: no symptoms reported Gastrointestinal: no symptoms reported Musculoskeletal: no symptoms reported Skin: no symptoms reported Neurological: No Symptoms Reported Hematologic/Lymphatic: No Symptoms Reported Immunological/Allergic: no symptoms reported All Other Systems Reviewed Negative Unless Noted: Yes Past Qxcbagv-Kpscmj-Yfviqp Hx Patient Social History Tobacco Use?: Yes Immunizations Up To Date Tetanus Booster (TDap): Unknown PED Vaccines UTD: Yes Seasonal Allergies Seasonal Allergies: No Past Medical History Surgery/Hospitalization HX: patient states hx of appy Surgeries: Yes (CARPAL TUNNEL) Appendectomy, Hysterectomy Respiratory: Yes Asthma, COPD Cardiac: No 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 oz. 75.355282mc; 32.00 BMI Method:Stated General Appearance: WD/WN, no apparent distress Eyes: bilateral eye normal inspection, bilateral eye PERRL, bilateral eye EOMI Ears: bilateral ear auricle normal, bilateral ear canal normal Nose: normal inspection Mouth/Throat: dental tenderness; No tongue swollen, No tonsillar exudate, No tonsillar swelling, No trismus, No uvula swelling, No voice changes; other (No facial swelling) Neck: non-tender, full range of motion, supple, normal inspection Cardiovascular: regular rate, rhythm, no edema, no murmur Respiratory: chest non-tender, lungs clear, normal breath sounds, no respi ratory distress, no accessory muscle use Gastrointestinal: normal bowel sounds, non tender, soft; No distended, No guarding, No rebound Neurologic/Psychiatric: no motor/sensory deficits, alert, normal mood/affect Skin: normal color, warm/dry Progress/Results/Core Measures Results/Orders My Orders Orders - LOU JO MD Ekg Tracing (04/10/21 21:22) Clindamycin Capsule (Cleocin Capsule) (04/10/21 21:30) Oxycodone Immediate Rel Tablet (Oxyir Ta (04/10/21 21:30) Rx-Hydrocodone/Apap 5-325 Mg (Rx-Vicodin (04/10/21 21:30) Medications Given in ED Current Medications Medications Dose Ordered Sig/Judy Route Start Time Stop Time Status Last Admin Dose Admin Acetaminophen/ Hydrocodone Bitart 1 ea Q6H PRN PO 04/10/21 21:30 04/10/21 22:41 DC 04/10/21 21:39 1 EA Oxycodone HCl 5 mg ONCE ONCE PO 04/10/21 21:30 04/10/21 21:32 DC 04/10/21 21:38 5 MG Vital Signs/I&O 04/10/21 04/10/21 21:25 22:40 Temp 36.8 Pulse 105 101 Resp 20 20 B/P (MAP) 146/92 (110) 144/92 Pulse Ox 96 97 O2 Delivery Room Air Room Air Progress Progress Note : Progress Note 61-year-old female with above history coming in due to concerns for dental infe ction. No large abscess felt, no facial swelling seen. No signs of Edis's angina, peritonsillar abscess, retropharyngeal abscess, or any other significant infection on exam. She was given clindamycin for the dental infection as well as an oxycodone. She was then discharged home in stable condition with strict return precautions. She should follow-up with a dentist which she assured me she would. Departure Impression Primary Impression: Dental abscess Disposition: 01 HOME, SELF-CARE Condition: Stable Departure-Patient Inst. Decision time for Depature: 21:32 Referrals: [facility] [place] (PCP/Family) Primary Care Physician Patient Instructions: Tooth Abscess (DC) Add. Discharge Instructions: You are seen in the emergency department for a tooth abscess/infection. Begin taking these antibiotics for the next week which I sent to [facility]. Take ibuprofen as needed for pain and if you are still in pain you can take Tylenol on top of that. The most important thing is you must have these teeth removed by dentist as the infection will come back and eventually will get worse. All discharge instructions reviewed with patient and/or family. Voiced understanding. Scripts Clindamycin HCl (Clindamycin HCl) 300 Mg Capsule 300 MG PO QID for 7 Days, #28 CAP Prov: LOU JO MD 04/10/21 LOU JO MD Apr 10, 2021 21:33
[2021-04-10 22:40] VITALS: BP 144/92
== END 2021-04-10 22:27 | disposition home or self-care (01) ==
LOC: EDUNIT# 21:15 → ER 21:17
DX: K04.7 Periapical abscess without sinus (principal); E11.9 Type 2 diabetes mellitus without complications; J44.9 Chronic obstructive pulmonary disease, unspecified; Z88.0 Allergy status to penicillin; Z88.1 Allergy status to other antibiotic agents; Z88.5 Allergy status to narcotic agent
CPT/HCPCS: 99283

== ENCOUNTER 2021-06-03 22:05 | Emergency (ER) | payer MEDICAID ==
[~2021-06-03] VITALS: Ht 163 cm; Wt 76.0 kg
[~2021-06-03 22:05] MED LIST changes: +CLIN-144 PO
--- NOTE | 2021-06-03 22:36 | ED Cough/URI ---
General Chief Complaint: Cough/Cold/Flu Symptoms Stated Complaint: CONGESTION / SOA / COUGH Nursing Triage Note: PERSISTANT COUGH/SOA SINCE 05/27/21 Source: patient History of Present Illness Date Seen by Provider: Jun 03, 2021 Time Seen by Provider: 22:19 Initial Comments PT ARRIVES VIA POV FROM HOME C/O COUGH/CONGESTION X 1 WEEK C/O SHORTNESS OF BREATH PT HAS ASTHMA/COPD--USED ALBUTEROL NEBULIZER AROUND 1900 TONIGHT HAS NOT CHECKED TEMP--DOES NOT HAVE A THERMOMETER C/O NASAL CONGESTION NO SORE THROAT NO LOSS OF TASTE OR SMELL NO GI SYMPTOMS NO HEADACHE NO BODY ACHES PT HAS NOT HAD COVID-19 VACCINE PT HAD FLU SHOT 2 WEEKS AGO HAS NOT SOUGHT CARE UNTIL TONIGHT SYMPTOMS NOT ANY WORSE TONIGHT PT IS A SMOKER PCP: DANO VILLA Allergies and Home Medications Allergies Coded Allergies: Penicillins (Verified Allergy, Unknown, 11/04/18) azithromycin (Verified Allergy, Unknown, 11/04/18) codeine (Verified Allergy, Unknown, 11/04/18) diazepam (Verified Allergy, Unknown, severe vomiting, 09/30/20) morphine (Verified Allergy, Unknown, 11/04/18) Patient Home Medication List Home Medication List Reviewed: Yes Albuterol Sulfate (Proair Hfa) 1 Puff Puff, 2 PUFF IH Q4H PRN for WHEEZING, (Reported) Entered as Reported by: SHAMEKA RODRIGUEZ on 10/01/20 1035 Benzonatate (Tessalon Perles) 100 Mg Capsule, 200 MG PO TID Prescribed by: EMELY MELO on 06/04/211 Cetirizine HCl (Cetirizine HCl) 10 Mg Tablet, 10 MG PO DAILY, (Reported) Entered as Reported by: SHAMEKA RODRIGUEZ on 10/01/20 1035 Clindamycin HCl (Clindamycin HCl) 300 Mg Capsule, 300 MG PO QID Prescribed by: LOU JO on 04/10/212132 Doxycycline Hyclate (Doxycycline Hyclate) 100 Mg Tablet, 100 MG PO BID Prescribed by: EMELY MELO on 06/04/211 Fluticasone/Vilanterol (Breo Ellipta 100-25 Mcg INH) 1 Each Blst.w.dev, 1 PUFF IH BID, (Reported) Entered as Reported by: FLACA HARRISON on 07/12/19 1511 Methylprednisolone (Medrol) 4 Mg Tab.ds.pk, 4 MG PO UD Prescribed by: EMELY MELO on 06/04/21 0002 Umeclidinium [place] (Incruse Ellipta) 62.5 Mcg Blst.w.dev, 62.5 MCG IH DAILY, (Reported) Entered as Reported by: SHAMEKA RODRIGUEZ on 10/01/20 1035 Review of Systems Review of Systems Constitutional: no symptoms reported EENTM: nose congestion; No throat pain Respiratory: cough, short of breath Cardiovascular: no symptoms reported Gastrointestinal: no symptoms reported Genitourinary: no symptoms reported Musculoskeletal: no symptoms reported Skin: no symptoms reported Psychiatric/Neurological: No Symptoms Reported Hematologic/Lymphatic: No Symptoms Reported Immunological/Allergic: no symptoms reported Past Kebbyhh-Ucwhdt-Hevbuy Hx Patient Social History Tobacco Use?: Yes Tobacco type used: Cigarettes Smoking Status: Current Everyday Smoker Substance use?: No Alcohol Use?: No Pt feels they are or have been: No Immunizations Up To Date Tetanus Booster (TDap): Unknown PED Vaccines UTD: Yes Influenza Vaccine Up-to-Date: Yes; Up-to-Date Seasonal Allergies Seasonal Allergies: No Past Medical History Surgery/Hospitalization HX: HYSTERECTOMY, APPY, CARPEL TUNNEL, BILATERAL CATARACT SURGERY ASTHMA, COPD, DM Surgeries: Yes (CARPAL TUNNEL) Appendectomy, Eye Surgery, Hysterectomy Respiratory: Yes Asthma, COPD Cardiac: No Neurological: No UTILITY CLERK History: Hysterectomy, Menopausal Genitourinary: No Gastrointestinal: No Musculoskeletal: No Endocrine: Yes Diabetes, Non-Insulin dep HEENT: No Cancer: No Psychosocial: No Integumentary: No Blood Disorders: No Physical Exam Vital Signs - First Documented 06/03/21 22:17 Temp 36.0 Pulse 129 Resp 22 B/P (MAP) 148/88 (108) Pulse Ox 96 O2 Delivery Room Air Capillary Refill : Less Than 3 Seconds Height: 5'5.00" Weight: 167lbs. oz. 75.295274yz; 28.00 BMI Method:Stated General Appearance: WD/WN, other (ANXIOUS, MILDLY DYSPNEIC. HAIR IS BRIGHT PINK/FUSCHIA COLORED. REEKS OF CIGARETTES, COVERED ANIMAL HAIR) HEENT: PERRL/EOMI Neck: normal inspection Respiratory: other (MILDLY DYSPNEIC. DECREASED AERATION IN ALL LUNG CARTAGENA, FAINT EXPIRATORY WHEEZING BILATERALLY) Cardiovascular: regular rate, rhythm, no edema, no murmur Gastrointestinal: non tender, soft Extremities: normal inspection, no pedal edema, normal capillary refill Neurologic/Psychiatric: no motor/sensory deficits, alert, oriented x 3, other (ANXIOUIS) Skin: normal color, warm/dry, tattoos/piercings (MULTIPLE TATTOOS) Focused Exam Lactate Level 06/03/21 22:50: Lactic Acid Level 1.01 Lactic Acid Level Laboratory Tests Test 06/03/21 22:50 Lactic Acid Level 1.01 MMOL/L (0.50-2.00) Progress/Results/Core Measures Suspected Sepsis SIRS Temperature: Pulse: 129 Respiratory Rate: 22 Laboratory Tests 06/03/21 22:25: White Blood Count 12.0H Blood Pressure 148 /88 Mean: 108 06/03/21 22:50: Lactic Acid Level 1.01 Laboratory Tests 06/03/21 22:25: Creatinine 1.02, Platelet Count 245, Total Bilirubin 0.4 Results/Orders Lab Results Laboratory Tests Test 06/03/21 22:24 06/03/21 22:25 06/03/21 22:41 06/03/21 22:50 Range/Units Influenza Type A (RT-PCR) Not Detected Not Detecte Influenza Type B (RT-PCR) Not Detected Not Detecte SARS-CoV-2 RNA (RT-PCR) Not Detected Not Detecte White Blood Count 12.0 H 4.3-11.0 10^3/uL Red Blood Count 4.76 3.80-5.11 10^6/uL Hemoglobin 13.7 11.5-16.0 g/dL Hematocrit 42 35-52 % Mean Corpuscular Volume 87 80-99 fL Mean Corpuscular Hemoglobin 29 25-34 pg Mean Corpuscular Hemoglobin Concent 33 32-36 g/dL Red Cell Distribution Width 13.0 10.0-14.5 % Platelet Count 245 130-400 10^3/uL Mean Platelet Volume 9.8 9.0-12.2 fL Immature Granulocyte % (Auto) 0 % Neutrophils (%) (Auto) 67 42-75 % Lymphocytes (%) (Auto) 26 12-44 % Monocytes (%) (Auto) 6 0-12 % Eosinophils (%) (Auto) 1 0-10 % Basophils (%) (Auto) 0 0-10 % Neutrophils # (Auto) 8.0 H 1.8-7.8 10^3/uL Lymphocytes # (Auto) 3.2 1.0-4.0 10^3/uL Monocytes # (Auto) 0.7 0.0-1.0 10^3/uL Eosinophils # (Auto) 0.1 0.0-0.3 10^3/uL Basophils # (Auto) 0.1 0.0-0.1 10^3/uL Immature Granulocyte # (Auto) 0.0 0.0-0.1 10^3/uL Erythrocyte Sedimentation Rate 26 0-30 MM/HR D-Dimer <= 0.27 0.00-0.49 UG/ML Sodium Level 138 135-145 MMOL/L Potassium Level 4.0 3.6-5.0 MMOL/L Chloride Level 108 H 98-107 MMOL/L Carbon Dioxide Level 20 L 21-32 MMOL/L Anion Gap 10 5-14 MMOL/L Blood Urea Nitrogen 10 7-18 MG/DL Creatinine 1.02 0.60-1.30 MG/DL Estimat Glomerular Filtration Rate 55 BUN/Creatinine Ratio 10 Glucose Level 114 H 70-105 MG/DL Calcium Level 9.1 8.5-10.1 MG/DL Corrected Calcium 8.9 8.5-10.1 MG/DL Magnesium Level 2.4 1.6-2.4 MG/DL Total Bilirubin 0.4 0.1-1.0 MG/DL Aspartate Amino Transf (AST/SGOT) 15 5-34 U/L Alanine Aminotransferase (ALT/SGPT) 16 0-55 U/L Alkaline Phosphatase 142 H 40-136 U/L C-Reactive Protein High Sensitivity 2.55 H 0.00-0.50 MG/DL B-Type Natriuretic Peptide 16.3 <100.0 PG/ML Total Protein 7.6 6.4-8.2 GM/DL Albumin 4.3 3.2-4.5 GM/DL Urine Color YELLOW Urine Clarity CLEAR Urine pH 6.5 5-9 Urine Specific [place] 1.015 L 1.016-1.022 Urine Protein NEGATIVE NEGATIVE Urine Glucose (UA) NEGATIVE NEGATIVE Urine Ketones NEGATIVE NEGATIVE Urine Nitrite NEGATIVE NEGATIVE Urine Bilirubin NEGATIVE NEGATIVE Urine Urobilinogen 0.2 < = 1.0 MG/DL Urine Leukocyte Esterase NEGATIVE NEGATIVE Urine RBC (Auto) NEGATIVE NEGATIVE Urine RBC NONE /HPF Urine WBC 0-2 /HPF Urine Squamous Epithelial Cells 5-10 /HPF Urine Crystals NONE /LPF Urine Bacteria TRACE /HPF Urine Casts NONE /LPF Urine Mucus NEGATIVE /LPF Urine Culture Indicated NO Lactic Acid Level 1.01 0.50-2.00 MMOL/L My Orders Orders - EMELY MELO DO Influenza A And B By Pcr (06/03/21 22:19) Covid 19 Inhouse Test (06/03/21 22:19) Ed Iv/Invasive Line Start (06/03/21 22:25) Monitor-Rhythm Ecg Trace Only (06/03/21 22:25) Chest 1 View, Ap/Pa Only (06/03/21 22:25) Bnp Daniel (06/03/21 22:25) Cbc With Automated Diff (06/03/21 22:25) Comprehensive Metabolic Panel (06/03/21 22:25) Hs C Reactive Protein (06/03/21 22:25) Fibrin Degradation Products (06/03/21 22:25) Lactic Acid Analyzer (06/03/21 22:25) Magnesium (06/03/21 22:25) Ua Culture If Indicated (06/03/21 22:25) Blood Culture (06/03/21 22:25) Erythrocyte Sedimentation Rate (06/03/21 22:25) Rt Request For Service (06/03/21 22:25) Dexamethasone Injection (Decadron Inje (06/03/21 22:30) Fluticasone/Salmeterol 232-14 (Airduo Re (06/04/21 08:00) Albuterol Inhaler (Albuterol) (06/04/21 02:00) Albuterol Inhaler (Albuterol) (06/03/21 22:46) Fluticasone/Salmeterol 113-14 (Airduo Re (06/03/21 22:46) Medications Given in ED Current Medications Medications Dose Ordered Sig/Judy Route Start Time Stop Time Status Last Admin Dose Admin Dexamethasone Sodium Phosphate 10 mg ONCE ONCE IV 06/03/21 22:30 06/03/21 22:32 DC 06/03/21 22:49 10 MG Vital Signs/I&O 06/03/21 06/04/21 22:17 00:09 Temp 36.0 36.2 Pulse 129 118 Resp 22 20 B/P (MAP) 148/88 (108) 122/68 Pulse Ox 96 95 O2 Delivery Room Air Room Air Capillary Refill : Less Than 3 Seconds Blood Pressure Mean: 108 Progress Note : Progress Note PLACED IN ISOLATION ROOM PPE WORN AT ALL TIMES COVID-19 TESTING PERFORMED GIVEN IV DECADRON GIVEN INHALER TREATMENTS SIGNIFICANT IMPROVEMENT IN SYMPTOMS RESPIRATIONS EVEN AND UNLABORED, INCREASED AERATION, WHEEZING RESOLVED O2 SATS 98% ON ROOM AIR NO COUGH NOTED DURING ER STAY Diagnostic Imaging Comments CXR--PER RADIOLOGIST REPORT AT 2358 IMPRESSION: Hyperinflation and chronic changes. No acute process in the chest. Reviewed: Reviewed by Me Departure Impression Primary Impression: Acute bronchitis Additional Impression: COPD exacerbation Disposition: HOME, SELF-CARE Condition: Improved Departure-Patient Inst. Decision time for Depature: 23:59 Referrals: [facility] (PCP/Family) Primary Care Physician Patient Instructions: Exacerbation of COPD, Acute Bronchitis, Adult (DC), How to Use Your Metered Dose Inhaler (Adults) Add. Discharge Instructions: LOTS OF CLEAR LIQUIDS TYLENOL AND MOTRIN NEEDED FOR PAIN OR FEVER OVER THE COUNTER ROBITUSSIN DM FOR COUGH AND CONGESTION USE YOUR INHALERS AND NEBULIZER PRESCRIBED FOLLOW UP WITH YOUR DR IN 2-3 DAYS IF NO BETTER, RETURN TO ER IF WORSE All discharge instructions reviewed with patient and/or family. Voiced understanding. Scripts Benzonatate (TESSALON PERLES) 100 Mg Capsule 200 MG PO TID, #30 CAP Prov: EMELY MELO DO 06/04/21 Methylprednisolone (Medrol) 4 Mg Tab.ds.pk 4 MG PO UD for 6 Days, #21 PKG PER DOSE PACK INSTRUCTIONS Prov: EMELY MELO DO 06/04/21 Doxycycline Hyclate (Doxycycline Hyclate) 100 Mg Tablet 100 MG PO BID, #20 TAB 0 Refills Prov: EMELY MELO DO 06/04/21 EMELY MELO DO Jun 03, 2021 22:36
[2021-06-03 22:41] LABS: BASOPHILS # (AUTO) 0.1 10^3/uL (0.0-0.1); BASOPHILS % (AUTO) 0 % (0-10); EOSINOPHILS # (AUTO) 0.1 10^3/uL (0.0-0.3); EOSINOPHILS % (AUTO) 1 % (0-10); HEMATOCRIT 42 % (35-52); HEMOGLOBIN 13.7 g/dL (11.5-16.0); LYMPHOCYTES # (AUTO) 3.2 10^3/uL (1.0-4.0); LYMPHOCYTES % (AUTO) 26 % (12-44); MEAN CORPUSCULAR HEMOGLOBIN 29 pg (25-34); MEAN CORPUSCULAR HGB CONC 33 g/dL (32-36); MEAN CORPUSCULAR VOLUME 87 fL (80-99); MEAN PLATELET VOLUME 9.8 fL (9.0-12.2); MONOCYTES # (AUTO) 0.7 10^3/uL (0.0-1.0); MONOCYTES % (AUTO) 6 % (0-12); NEUTROPHILS % (AUTO) 67 % (42-75); PLATELET COUNT 245 10^3/uL (130-400)
[2021-06-03 22:43] LABS: ALBUMIN 4.3 GM/DL (3.2-4.5)
[2021-06-03 22:44] LABS: CALCIUM 9.1 MG/DL (8.5-10.1)
[2021-06-03 22:46] LABS: TOTAL PROTEIN 7.6 GM/DL (6.4-8.2)
[2021-06-03] MEDS ORDERED: RT--FLUTICASONE/SALMETEROL 113-14 (AIRDUO RespiCLICK) IH ONE (22:46)
[2021-06-03] MEDS ORDERED: RT-ALBUTEROL HFA 8.5 GM INHALER IH ONE (22:46)
[2021-06-03 22:47] LABS: BILIRUBIN,TOTAL 0.4 MG/DL (0.1-1.0)
[2021-06-03 22:47] LABS: BILIRUBIN,URINE NEGATIVE (NEGATIVE); CLARITY,URINE CLEAR; COLOR,URINE YELLOW; GLUCOSE, URINE (UA) NEGATIVE (NEGATIVE); KETONES,URINE NEGATIVE (NEGATIVE); LEUKOCYTE ESTERASE ,URINE NEGATIVE (NEGATIVE); NITRITE,URINE NEGATIVE (NEGATIVE); PH,URINE 6.5 (5-9); PROTEIN,URINE NEGATIVE (NEGATIVE)
[2021-06-03 22:49] LABS: CREATININE SERUM 1.02 MG/DL (0.60-1.30)
[2021-06-03 22:52] LABS: MAGNESIUM 2.4 MG/DL (1.6-2.4)
[2021-06-03 22:56] LABS: BACTERIA,URINE TRACE /HPF; WBC,URINE 0-2 /HPF
[2021-06-03 23:03] LABS: ERYTHROCYTE SEDIMENTATION RATE 26 MM/HR (0-30)
--- NOTE | 2021-06-03 23:44 | Diagnostic Imaging Report ---
INDICATION: Dyspnea and cough Frontal chest obtained at 1136 p.m. and compared to 11/04/2018. Heart and mediastinal silhouette are normal in appearance. There is mild central vascular prominence which appears chronic. There are chronic appearing increased basilar markings. There is no new infiltrate or pneumothorax or pleural fluid. There is hyperinflation. IMPRESSION: Hyperinflation and chronic changes. No acute process in the chest. Dictated by: Dictated on workstation # [id number]
[2021-06-04] MEDS ORDERED: DOXY100T2 PO (00:02)
[2021-06-04] MEDS ORDERED: BENZ100C18 PO (00:02)
[2021-06-04] MEDS ORDERED: METH4TAB PO (00:02)
[2021-06-04 00:09] VITALS: BP 122/68
[2021-06-04] MEDS ORDERED: RT-ALBUTEROL HFA 8.5 GM INHALER IH SCH (02:00)
[2021-06-04] MEDS ORDERED: RT--FLUTICASONE/SALMETEROL 232-14 (AIRDUO RespiCLICK) IH SCH (08:00)
== END 2021-06-04 00:12 | disposition home or self-care (01) ==
LOC: EDUNIT# 22:05 → ER 22:06
DX: J20.9 Acute bronchitis, unspecified (principal); J44.1 Chronic obstructive pulmonary disease with (acute) exacerbation; E11.9 Type 2 diabetes mellitus without complications; F17.210 Nicotine dependence, cigarettes, uncomplicated; Z20.822 Contact with and (suspected) exposure to COVID-19
CPT/HCPCS: 36415; 71045; 80053; 81000; 83605; 83735; 83880; 85025; 85379; 85652; 86141; 87040; 87636; 93041

== ENCOUNTER 2021-09-11 12:23 | Outpatient (CLI) | payer MEDICAID ==
[~2021-09-11 12:23] MED LIST changes: +BENZ100C18 PO; +METH4TAB PO
== END 2021-09-11 13:10 ==
LOC: SLEEP 12:23
PROVIDERS: ATTEND Nurse Practitioner Family
DX: J44.9 Chronic obstructive pulmonary disease, unspecified (principal); G47.9 Sleep disorder, unspecified; R06.81 Apnea, not elsewhere classified
CPT/HCPCS: G0399

== ENCOUNTER 2022-04-02 12:05 | Emergency (ER) | payer BC, MEDICAID ==
--- NOTE | 2022-04-02 12:16 | ED Respiratory ---
General Chief Complaint: COVID19 Suspect/Confirmed Stated Complaint: COVID + - SOA Source: patient Exam Limitations: no limitations History of Present Illness Date Seen by Provider: Apr 02, 2022 Time Seen by Provider: 12:15 Initial Comments This is a 62-year-old female who presented to the ER via [facility] from [facility] for concerns of shortness of air, she was found to be COVID-positive today. She does have a history of COPD and they were attempting ambulatory oxygen test and she almost passed out. She is tachycardic in the low 100's, has used her albuterol inhaler multiple times stating that she is now on her second inhaler. Her symptoms began just over a week ago, she woke this morning with severe shortness of breath. No history of previous DVT. No fever, chest pain, nausea, vomiting, diarrhea, abdominal pain. Allergies and Home Medications Allergies Coded Allergies: Penicillins (Verified Allergy, Unknown, 11/04/18) azithromycin (Verified Allergy, Unknown, 11/04/18) codeine (Verified Allergy, Unknown, 11/04/18) diazepam (Verified Allergy, Unknown, severe vomiting, 09/30/20) morphine (Verified Allergy, Unknown, 11/04/18) Patient Home Medication List Home Medication List Reviewed: Yes Albuterol Sulfate (Proair Hfa) 1 Puff Puff, 2 PUFF IH Q4H PRN for WHEEZING, (Reported) Entered as Reported by: SHAMEKA RODRIGUEZ on 10/01/20 1035 Albuterol Sulfate (Ventolin Hfa) 1 Puff Puff, 2 PUFF INH Q4H Prescribed by: ORLANDO LEA on 04/02/22 1409 Benzonatate (Tessalon Perles) 100 Mg Capsule, 200 MG PO TID Prescribed by: EMELY MELO on 06/04/21 0002 Cetirizine HCl (Cetirizine HCl) 10 Mg Tablet, 10 MG PO DAILY, (Reported) Entered as Reported by: SHAMEKA RODRIGUEZ on 10/01/20 1035 Clindamycin HCl (Clindamycin HCl) 300 Mg Capsule, 300 MG PO QID Prescribed by: LOU JO on 04/10/212132 Doxycycline Hyclate (Doxycycline Hyclate) 100 Mg Tablet, 100 MG PO BID Prescribed by: EMELY MELO on 06/04/21 0002 Fluticasone/Vilanterol (Breo Ellipta 100-25 Mcg INH) 1 Each Blst.w.dev, 1 PUFF IH BID, (Reported) Entered as Reported by: FLACA HARRISON on 07/12/19 1511 Ipratropium/Albuterol Sulfate (Iprat-Albut 0.5-3(2.5) mg/3 ml) 0.5 Mg-3 Mg (2.5 Mg Base)/3 Ml Ampul.neb, 3 ML IH QID PRN for SHORTNESS OF BREATH Prescribed by: ORLANDO LEA on 04/02/22 1409 Methylprednisolone (Medrol) 4 Mg Tab.ds.pk, 4 MG PO UD Prescribed by: EMELY MELO on 06/04/21 0002 Prednisone (Prednisone) 50 Mg Tab, 50 MG PO DAILY Prescribed by: ORLANDO LEA on 04/02/22 1411 Umeclidinium [place] (Incruse Ellipta) 62.5 Mcg Blst.w.dev, 62.5 MCG IH DAILY, (Reported) Entered as Reported by: SHAMEKA RODRIGUEZ on 10/01/20 1035 Discontinued Medications Prednisone (Prednisone) 50 Mg Tab, 50 MG PO DAILY Prescribed by: ORLANDO LEA on 04/02/22 1408 Review of Systems Review of Systems Constitutional: see HPI Past Mjrsosd-Dodznx-Difadw Hx Patient Social History Tobacco Use?: Yes Tobacco type used: Cigarettes Smoking Status: Current Everyday Smoker Substance use?: No Alcohol Use?: No Pt feels they are or have been: No Immunizations Up To Date Tetanus Booster (TDap): Unknown PED Vaccines UTD: Yes Influenza Vaccine Up-to-Date: No; Not Current First/Initial COVID19 Vaccinat: YES COVID19 Vaccine Lead Sales Consultant: MANUELITO Seasonal Allergies Seasonal Allergies: No Past Medical History Surgery/Hospitalization HX: HYSTERECTOMY, APPY, CARPEL TUNNEL, BILATERAL CATARACT SURGERY ASTHMA, COPD, DM Surgeries: Yes (CARPAL TUNNEL) Appendectomy, Eye Surgery, Hysterectomy Respiratory: Yes Asthma, COPD Cardiac: No Neurological: No OBSTETRICAL NURSE History: Hysterectomy, Menopausal Genitourinary: No Gastrointestinal: No Musculoskeletal: No Endocrine: Yes Diabetes, Non-Insulin dep HEENT: No Cancer: No Psychosocial: No Integumentary: No Blood Disorders: No Physical Exam Vital Signs - First Documented 04/02/22 12:06 Temp 36.2 Pulse 105 Resp 24 B/P (MAP) 129/78 (95) Capillary Refill : Height: 5'5.00" Weight: 167lbs. oz. 75.924903jj; 28.00 BMI Method:Stated General Appearance: WD/WN, mild distress Eyes: Bilateral Eye Normal Inspection, Bilateral Eye PERRL, Bilateral Eye Abnormal EOM HEENT: PERRL/EOMI, normal ENT inspection, pharynx normal Neck: full range of motion, supple, normal inspection Respiratory: no respiratory distress, no accessory muscle use, rhonchi, wheezing, expiration, other (increased effort) Cardiovascular: normal peripheral pulses, regular rate, rhythm, no murmur Gastrointestinal: normal bowel sounds, non tender, soft Extremities: normal range of motion, non-tender, normal inspection Neurologic/Psychiatric: no motor/sensory deficits, alert, normal mood/affect, oriented x 3 Skin: normal color, warm/dry Focused Exam Lactate Level 04/02/22 12:56: Lactic Acid Level 0.80 Lactic Acid Level Laboratory Tests Test 04/02/22 12:56 Lactic Acid Level 0.80 MMOL/L (0.50-2.00) Progress/Results/Core Measures Suspected Sepsis SIRS Temperature: Pulse: Respiratory Rate: Laboratory Tests 04/02/22 12:17: White Blood Count 5.4 Blood Pressure / Mean: 04/02/22 12:56: Lactic Acid Level 0.80 Laboratory Tests 04/02/22 12:17: Creatinine 0.86, INR Comment 1.0, Platelet Count 212, Total Bilirubin 0.3 Results/Orders Lab Results Laboratory Tests Test 04/02/22 12:17 04/02/22 12:56 04/02/22 13:13 Range/Units White Blood Count 5.4 4.3-11.0 10^3/uL Red Blood Count 4.75 3.80-5.11 10^6/uL Hemoglobin 13.5 11.5-16.0 g/dL Hematocrit 41 35-52 % Mean Corpuscular Volume 87 80-99 fL Mean Corpuscular Hemoglobin 28 25-34 pg Mean Corpuscular Hemoglobin Concent 33 32-36 g/dL Red Cell Distribution Width 12.9 10.0-14.5 % Platelet Count 212 130-400 10^3/uL Mean Platelet Volume 10.5 9.0-12.2 fL Immature Granulocyte % (Auto) 0 % Neutrophils (%) (Auto) 59 42-75 % Lymphocytes (%) (Auto) 32 12-44 % Monocytes (%) (Auto) 8 0-12 % Eosinophils (%) (Auto) 1 0-10 % Basophils (%) (Auto) 1 0-10 % Neutrophils # (Auto) 3.2 1.8-7.8 10^3/uL Lymphocytes # (Auto) 1.7 1.0-4.0 10^3/uL Monocytes # (Auto) 0.5 0.0-1.0 10^3/uL Eosinophils # (Auto) 0.0 0.0-0.3 10^3/uL Basophils # (Auto) 0.0 0.0-0.1 10^3/uL Immature Granulocyte # (Auto) 0.0 0.0-0.1 10^3/uL Prothrombin Time 14.0 12.2-14.7 SEC INR Comment 1.0 0.8-1.4 Activated Partial Thromboplast Time 31 24-35 SEC D-Dimer 0.40 0.00-0.49 UG/ML Sodium Level 137 135-145 MMOL/L Potassium Level 4.0 3.6-5.0 MMOL/L Chloride Level 107 98-107 MMOL/L Carbon Dioxide Level 23 21-32 MMOL/L Anion Gap 7 5-14 MMOL/L Blood Urea Nitrogen 11 7-18 MG/DL Creatinine 0.86 0.60-1.30 MG/DL Estimat Glomerular Filtration Rate 77 BUN/Creatinine Ratio 13 Glucose Level 115 H 70-105 MG/DL Calcium Level 9.2 8.5-10.1 MG/DL Corrected Calcium 8.9 8.5-10.1 MG/DL Total Bilirubin 0.3 0.1-1.0 MG/DL Aspartate Amino Transf (AST/SGOT) 15 5-34 U/L Alanine Aminotransferase (ALT/SGPT) 12 0-55 U/L Alkaline Phosphatase 116 40-136 U/L Troponin I < 0.028 <0.028 NG/ML C-Reactive Protein High Sensitivity 4.33 H 0.00-0.50 MG/DL Total Protein 7.6 6.4-8.2 GM/DL Albumin 4.4 3.2-4.5 GM/DL Lactic Acid Level 0.80 0.50-2.00 MMOL/L Blood Gas Puncture Site R ARM Blood Gas Patient Temperature 36.2 Arterial Blood pH 7.39 7.37-7.43 Arterial Blood Partial Pressure CO2 31 L 35-45 MMHG Arterial Blood Partial Pressure O2 70 L 79-93 MMHG Arterial Blood HCO3 19 L 23-27 MMOL/L Arterial Blood Total CO2 19.9 L 21.0-31.0 MMOL/L Arterial Blood Oxygen Saturation 98 94-100 % Arterial Blood Base Excess -5.2 L -2.5-2.5 MMOL/L Jose Elias Test POSITIVE Blood Gas Ventilator Setting NO Blood Gas Inspired Oxygen N/A My Orders Orders - ORLANDO LEA APRN Monitor-Rhythm Ecg Trace Only (04/02/22 12:13) Ed Iv/Invasive Line Start (04/02/22 12:13) Cbc With Automated Diff (04/02/22 12:13) Comprehensive Metabolic Panel (04/02/22 12:13) Hs C Reactive Protein (04/02/22 12:13) Troponin I [place] (04/02/22 12:13) Lactic Acid Analyzer (04/02/22 12:13) Protime With Inr (04/02/22 12:13) Partial Thromboplastin Time (04/02/22 12:13) Fibrin Degradation Products (04/02/22 12:13) Ekg Tracing (04/02/22 12:13) Chest 1 View, Ap/Pa Only (04/02/22 12:13) Arterial Blood Gas (04/02/22 12:13) Methylprednisolone Sod Succ (Solu-Medrol (04/02/22 12:45) Albuterol Inhaler (Albuterol) (04/02/22 14:00) Bebtelovimab (Bebtelovimab) (04/02/22 14:45) Epinephrine 1 Mg Injection (Adrenalin I (04/02/22 14:45) Diphenhydramine Injection (Benadryl Inje (04/02/22 14:45) Ondansetron Injection (Zofran Injectio (04/02/22 14:30) Acetaminophen Tablet (Tylenol Tablet) (04/02/22 14:30) Medications Given in ED Vital Signs/I&O 04/02/22 04/02/22 12:06 16:05 Temp 36.2 36.2 Pulse 105 95 Resp 24 20 B/P (MAP) 129/78 (95) 118/78 Capillary Refill : Progress Note : Progress Note Breathing treatment just prior to arrival. Increased effort, no distress. Basic labs, Ddimer, EKG, and CXR ordered. Given Solumedrol 125mg IVP x1. Labs reviewed. No elevation in WBC, CXR unremarkable, Ddimer within normal limits, no acute ST changes on EKG. Feeling somewhat improved. Will benefit from Paxlovid or Monoclonal antibody infusion due to history COPD and COVID positive. Discussed alternatives for COVID treatment. Would like to proceed with mo noclonal antibody infusion. Meets all inclusion criteria and is considered high risk based on history of HTN and COPD. Pt. Was provided with "Fact sheet for patients and caregivers" and informed the bebtelovimab is an unapproved drug authorized for use under EUA for the treatment of mild to moderate COVID-19 symptoms. Patient consented for infusion and was administered in the ER. Was observed for one hour post infusion, no adverse reactions noted. Discharge POC reviewed and he/she is agreeable with plan. ECG Initial ECG Impression Date: Apr 02, 2022 Initial ECG Impression Time: 12:29 Initial ECG Rate: 105 Initial ECG Rhythm: S.Tach Initial ECG Intervals: Normal Initial ECG Impression: Normal Diagnostic Imaging Diagonstic Imaging: CT Comments [facility], [place] NAME: [facility] REC#: [id number] PT STATUS: REG ER : 1960 PHYSICIAN: ORLANDO LEA BILLING CONTROL CLERK ADMIT DATE: 04/02/22/ER Signed Date of Exam:04/02/22 CHEST 1 VIEW, AP/PA ONLY EXAMINATION: Chest, one view. HISTORY: COVID, SOA. COMPARISON: 06/03/2021. FINDINGS: Heart size and pulmonary vasculature are normal. The lungs are clear without consolidation, pleural effusion, or pneumothorax. The osseous structures are intact. IMPRESSION: 1. No acute radiographic abnormality in the chest. Dictated by: Dictated on workstation # [id number] Dict: 04/02/22 1340 Trans: 04/02/22 1411 [id number] Interpreted by: TEJAS LOPEZ DO Electronically signed by: TEJAS LOPEZ DO 04/02/22 1411 Departure Impression Primary Impression: COVID-19 Additional Impression: COPD (chronic obstructive pulmonary disease) Disposition: 01 HOME, SELF-CARE Condition: Improved Departure-Patient Inst. Decision time for Depature: 14:07 Referrals: [facility] (PCP/Family) Primary Care Physician Patient Instructions: Recovery After COVID-19 Add. Discharge Instructions: Plan: 1. Discharge home. 2. Stay home for 5 days and then mask when in public for additional 5 days. If you are still running fever, you will need to stay home until you are fever free. 3. Wash your hands frequently, disinfect surfaces at home. Try to isolate yourself from others in the house as much as you are able. 4. Clean areas that may have blood, stool, or body fluids on them. 5. Cover your mouth and nose when you cough or sneeze, throw away tissues, and wash hands immediately. 6. Return to ER if you develop: trouble breathing, persistent pain or pressure in the chest, new confusion, inability to wake or stay awake, pale, fish, blue- colored skin, lips, or nail beds depending on skin tone. 7. Return to ER for any other new, concerning, or worsening symptoms. All discharge instructions reviewed with patient and/or family. Voiced understanding. Scripts Prednisone (Prednisone) 50 Mg Tab 50 MG PO DAILY for 5 Days, #5 TAB 0 Refills Prov: ORLANDO LEA BILLING CONTROL CLERK 04/02/22 Ipratropium/Albuterol Sulfate (Iprat-Albut 0.5-3(2.5) mg/3 ml) 0.5 Mg-3 Mg (2.5 Mg Base)/3 Ml Ampul.neb 3 ML IH QID PRN for SHORTNESS OF BREATH for 7 Days, #30 EACH 0 Refills Prov: ORLANDO LEA BILLING CONTROL CLERK 04/02/22 Albuterol Sulfate (VENTOLIN HFA) 1 Puff Puff 2 PUFF INH Q4H for 30 Days, #1 EA 0 Refills 1 PUFF = 90 MCG Prov: ORLANDO LEA BILLING CONTROL CLERK 04/02/22 LEONORAORLANDO THORNTON APRN Apr 02, 2022 12:16
[2022-04-02 12:33] LABS: BASOPHILS % (AUTO) 1 % (0-10); EOSINOPHILS % (AUTO) 1 % (0-10); HEMATOCRIT 41 % (35-52); HEMOGLOBIN 13.5 g/dL (11.5-16.0); LYMPHOCYTES # (AUTO) 1.7 10^3/uL (1.0-4.0); LYMPHOCYTES % (AUTO) 32 % (12-44); MEAN CORPUSCULAR HEMOGLOBIN 28 pg (25-34); MEAN CORPUSCULAR HGB CONC 33 g/dL (32-36); MEAN CORPUSCULAR VOLUME 87 fL (80-99); MEAN PLATELET VOLUME 10.5 fL (9.0-12.2); MONOCYTES # (AUTO) 0.5 10^3/uL (0.0-1.0); MONOCYTES % (AUTO) 8 % (0-12); NEUTROPHILS # (AUTO) 3.2 10^3/uL (1.8-7.8); NEUTROPHILS % (AUTO) 59 % (42-75); PLATELET COUNT 212 10^3/uL (130-400); WHITE BLOOD COUNT 5.4 10^3/uL (4.3-11.0)
[2022-04-02 12:36] LABS: ALBUMIN 4.4 GM/DL (3.2-4.5); CHLORIDE 107 MMOL/L (98-107); SODIUM 137 MMOL/L (135-145)
[2022-04-02 12:37] LABS: CALCIUM 9.2 MG/DL (8.5-10.1)
[2022-04-02 12:39] LABS: GLUCOSE 115 MG/DL (70-105); TOTAL PROTEIN 7.6 GM/DL (6.4-8.2)
[2022-04-02 12:40] LABS: BILIRUBIN,TOTAL 0.3 MG/DL (0.1-1.0); CARBON DIOXIDE 23 MMOL/L (21-32)
[2022-04-02 12:42] LABS: ALKALINE PHOSPHATASE 116 U/L (40-136); CREATININE SERUM 0.86 MG/DL (0.60-1.30); FIBRIN DEGRADATION PRODUCTS 0.4 UG/ML (0.00-0.49); GFR ESTIMATED 77
[2022-04-02 12:43] LABS: BUN/CREATININE RATIO 13
[2022-04-02 12:45] LABS: ALANINE AMINOTRANSFERASE 12 U/L (0-55)
[2022-04-02] MEDS ORDERED: methylPREDNISolone 125 MG (Solu-MEDROL) VIAL IM ONE (12:45)
--- NOTE | 2022-04-02 13:44 | Diagnostic Imaging Report ---
EXAMINATION: Chest, one view. HISTORY: COVID, MONICAA. COMPARISON: 06/03/2021. FINDINGS: Heart size and pulmonary vasculature are normal. The lungs are clear without consolidation, pleural effusion, or pneumothorax. The osseous structures are intact. IMPRESSION: 1. No acute radiographic abnormality in the chest. Dictated by: Dictated on workstation # [id number]
[2022-04-02 13:52] LABS: ABG BASE EXCESS -5.2 MMOL/L (-2.5-2.5); ABG OXYGEN SATURATION 98 % (94-100); ABG PCO2 31 MMHG (35-45); ABG PH 7.39 (7.37-7.43); ABG PO2 70 MMHG (79-93); ABG TCO2 19.9 MMOL/L (21.0-31.0); ALLENS TEST POSITIVE; PATIENT TEMP 36.2; VENTILATOR NO
[2022-04-02] MEDS ORDERED: RT-ALBUTEROL HFA 8.5 GM INHALER IH ONE (14:00)
[2022-04-02] MEDS ORDERED: PRD50T PO ×2 (14:08→14:11)
[2022-04-02] MEDS ORDERED: IPRA3AMP31 IH (14:09)
[2022-04-02] MEDS ORDERED: RT-ALBUINH INH (14:09)
[2022-04-02] MEDS ORDERED: ONDANSETRON 4 MG/2 ML (SDV) Z0FRAN IV PRN (14:30)
[2022-04-02] MEDS ORDERED: ACETAMINOPHEN 500 MG TAB (TYLENOL) PO PRN (14:30)
[2022-04-02] MEDS ORDERED: BEBTELOVIMAB 175 MG/2 ML VIAL IV ONE (14:45)
[2022-04-02] MEDS ORDERED: diphenhydrAMINE 50 MG/ML INJ (BENADRYL) IV PRN (14:45)
[2022-04-02] MEDS ORDERED: EPINEPHrine INJECTION 1 MG/ML AMP IM PRN (14:45)
[2022-04-02 16:05] VITALS: BP 118/78
== END 2022-04-02 16:07 | disposition home or self-care (01) ==
LOC: EDUNIT# 12:05 → ER 12:06
DX: U07.1 COVID-19 (principal); J44.9 Chronic obstructive pulmonary disease, unspecified; F17.210 Nicotine dependence, cigarettes, uncomplicated; Z73.0 Burn-out
CPT/HCPCS: 36415; 71045; 80053; 82805; 83605; 84484; 85025; 85379; 85610; 85730; 86141; 93041

== ENCOUNTER 2022-04-05 16:11 | Emergency (ER) | payer BC, MEDICAID ==
[~2022-04-05 16:11] MED LIST changes: +IPRA3AMP31 IH; +PRD50T PO; +RT-ALBUINH INH
--- NOTE | 2022-04-05 16:25 | ED Cough/URI ---
General Chief Complaint: COVID19 Suspect/Confirmed Stated Complaint: COVID Source: patient Exam Limitations: no limitations History of Present Illness Date Seen by Provider: Apr 05, 2022 Time Seen by Provider: 16:15 Initial Comments 62-year-old female presents to the emergency department via private vehicle for shortness of breath related to COVID-19. She was diagnosed with COVID on 04/02 and had the monoclonal antibody infusion at that time. She went to the [facility] clinic today and they sent her here for shortness of breath. She states she will have coughing fits when she walks causing her to be severely short of breath. She has chills but denies any fevers. She states currently that she is "burning up." She has a nonproductive cough. She does complain of some body aches. Allergies and Home Medications Allergies Coded Allergies: Penicillins (Verified Allergy, Unknown, 11/04/18) azithromycin (Verified Allergy, Unknown, 11/04/18) codeine (Verified Allergy, Unknown, 11/04/18) diazepam (Verified Allergy, Unknown, severe vomiting, 09/30/20) morphine (Verified Allergy, Unknown, 11/04/18) Patient Home Medication List Home Medication List Reviewed: Yes Albuterol Sulfate (Proair Hfa) 1 Puff Puff, 2 PUFF IH Q4H PRN for WHEEZING, (Reported) Entered as Reported by: SHAMEKA RODRIGUEZ on 10/01/20 1035 Albuterol Sulfate (Ventolin Hfa) 1 Puff Puff, 2 PUFF INH Q4H Prescribed by: ORLANDO LEA on 04/02/22 1409 Albuterol Sulfate (Proair Hfa) 1 Puff Puff, 2 PUFF IH Q4H Prescribed by: REBA SHAIKH MD on 04/05/22 1722 Benzonatate (Tessalon Perles) 100 Mg Capsule, 200 MG PO TID Prescribed by: EMELY MELO on 06/04/21 0002 Cetirizine HCl (Cetirizine HCl) 10 Mg Tablet, 10 MG PO DAILY, (Reported) Entered as Reported by: SHAMEKA RODRIGUEZ on 10/01/20 1035 Clindamycin HCl (Clindamycin HCl) 300 Mg Capsule, 300 MG PO QID Prescribed by: LOU JO on 04/10/21 2133 Doxycycline Hyclate (Doxycycline Hyclate) 100 Mg Tablet, 100 MG PO BID Prescribed by: EMELY MELO on 06/04/21 0002 Fluticasone/Vilanterol (Breo Ellipta 100-25 Mcg INH) 1 Each Blst.w.dev, 1 PUFF IH BID, (Reported) Entered as Reported by: FLACA HARRISON on 07/12/19 1511 Hydroxyzine HCl (Hydroxyzine HCl) 50 Mg Tablet, 50 MG PO Q6H Prescribed by: REBA SHAIKH MD on 04/05/22 1722 Ipratropium/Albuterol Sulfate (Iprat-Albut 0.5-3(2.5) mg/3 ml) 0.5 Mg-3 Mg (2.5 Mg Base)/3 Ml Ampul.neb, 3 ML IH QID PRN for SHORTNESS OF BREATH Prescribed by: ORLANDO LEA on 04/02/22 1409 Methylprednisolone (Medrol) 4 Mg Tab.ds.pk, 4 MG PO UD Prescribed by: EMELY MELO on 06/04/21 0002 Prednisone (Prednisone) 50 Mg Tab, 50 MG PO DAILY Prescribed by: ORLANDO LEA on 04/02/22 1411 Umeclidinium [place] (Incruse Ellipta) 62.5 Mcg Blst.w.dev, 62.5 MCG IH DAILY, (Reported) Entered as Reported by: SHAMEKA RODRIGUEZ on 10/01/20 1035 Discontinued Medications Prednisone (Prednisone) 50 Mg Tab, 50 MG PO DAILY Prescribed by: ORLANDO LEA on 04/02/22 1408 Review of Systems Review of Systems Constitutional: chills EENTM: no symptoms reported Respiratory: cough, short of breath Cardiovascular: no symptoms reported Gastrointestinal: no symptoms reported Genitourinary: no symptoms reported Musculoskeletal: no symptoms reported Skin: no symptoms reported Psychiatric/Neurological: No Symptoms Reported Hematologic/Lymphatic: No Symptoms Reported Immunological/Allergic: no symptoms reported Past Fmbiide-Frmpdw-Wnhbzz Hx Patient Social History Tobacco Use?: Yes Use of E-Cig and/or Vaping dev: No Substance use?: No Alcohol Use?: No Immunizations Up To Date Tetanus Booster (TDap): Unknown PED Vaccines UTD: Yes First/Initial COVID19 Vaccinat: YES Seasonal Allergies Seasonal Allergies: No Past Medical History Surgery/Hospitalization HX: HYSTERECTOMY, APPY, CARPEL TUNNEL, BILATERAL CATARACT SURGERY ASTHMA, COPD, DM Surgeries: Yes (CARPAL TUNNEL) Appendectomy, Eye Surgery, Hysterectomy Respiratory: Yes Asthma, COPD Cardiac: No 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 oz. 75.001884bn; 28.00 BMI Method:Stated General Appearance: WD/WN, other (Anxious) HEENT: normal ENT inspection, pharynx normal Neck: non-tender, full range of motion, supple, normal inspection Respiratory: chest non-tender, lungs clear, normal breath sounds, no accessory muscle use, other (Hyperventilating) Cardiovascular: no edema, no gallop, no JVD, no murmur, tachycardia Gastrointestinal: normal bowel sounds, non tender, soft, no organomegaly, no pulsatile mass Extremities: normal range of motion, non-tender, normal inspection, no pedal edema, no calf tenderness Neurologic/Psychiatric: alert, oriented x 3 Skin: normal color, warm/dry Lymphatic: no adenopathy Progress/Results/Core Measures Suspected Sepsis SIRS Temperature: Pulse: Respiratory Rate: Blood Pressure / Mean: Results/Orders My Orders Orders - REBA SHAIKH DO Benzonatate Capsule (Tessalon Perles) (04/05/22 16:30) Hydroxyzine Cap/Tab (Vistaril) (04/05/22 16:30) Chest 1 View, Ap/Pa Only (04/05/22 16:20) Medications Given in ED Vital Signs/I&O 04/05/22 04/05/22 16:16 17:28 Temp 37.1 Pulse 122 93 Resp 24 18 B/P (MAP) 161/84 (109) 111/75 Pulse Ox 96 97 O2 Delivery Room Air Room Air Capillary Refill : Departure Communication (Admissions) When patient arrived she is hyperventilating, anxious. Her oxygen saturation is 96 to 98% on room air. Chest x-ray shows no acute abnormalities. I believe at least in part this is related to anxiety though certainly there is an element of COVID as well. Her lung sounds are completely clear with no wheezing. She does have inhalers at home and is on her last day of steroids. She will be discharged home with supportive care and close primary care follow-up Impression Primary Impression: COVID-19 Additional Impression: Anxiousness Disposition: 01 HOME, SELF-CARE Condition: Stable Departure-Patient Inst. Referrals: [facility] [place] (PCP/Family) Primary Care Physician Patient Instructions: Anxiety, Adult (DC), COVID-19 Overview Add. Discharge Instructions: Continue to use your inhaler as needed. Finish your prednisone as previously prescribed. Use the hydroxyzine as needed for anxiety. Return to the emergency department for any severe concerns. follow-up with your primary doctor in the next 48 hours All discharge instructions reviewed with patient and/or family. Voiced understanding. Scripts Albuterol Sulfate (PROAIR HFA) 1 Puff Puff 2 PUFF IH Q4H for Dyspean for 30 Days, #1 EA 1 PUFF = 90 MCG Prov: REBA SHAIKH DO 04/05/22 Hydroxyzine HCl (Hydroxyzine HCl) 50 Mg Tablet 50 MG PO Q6H for Anxiety for 7 Days, #28 TAB Prov: REBA SHAIKH DO 04/05/22 REBA SHAIKH DO Apr 05, 2022 16:24
[2022-04-05] MEDS ORDERED: hydrOXYzine (VISTARIL/ATARAX) 25 MG capsule/tablet PO ONE (16:30)
[2022-04-05] MEDS ORDERED: BENZONATATE 100 MG (TESSALON) CAPSULE PO SCH (16:30)
--- NOTE | 2022-04-05 16:52 | Diagnostic Imaging Report ---
INDICATION: Dyspnea. TECHNIQUE/COMPARISON: A frontal chest was obtained at 4:43 PM and compared to 04/02/2022. FINDINGS: The heart and mediastinal silhouette are normal in appearance. There is central vascular congestion. There is no focal infiltrate, pneumothorax, or pleural fluid. IMPRESSION: Central vascular congestion. No focal infiltrate, pneumothorax, or pleural fluid. Dictated by: Dictated on workstation # [id number]
[2022-04-05] MEDS ORDERED: RT-ALBUINH IH (17:22)
[2022-04-05] MEDS ORDERED: HYDR50TA76 PO (17:22)
[2022-04-05 17:28] VITALS: BP 111/75
== END 2022-04-05 17:33 | disposition home or self-care (01) ==
LOC: EDUNIT# 16:11 → ER 16:12
DX: U07.1 COVID-19 (principal); F41.9 Anxiety disorder, unspecified; R06.02 Shortness of breath; R05.1 Acute cough; Z72.0 Tobacco use; Z73.0 Burn-out; Z28.310 Unvaccinated for COVID-19
CPT/HCPCS: 71045

== ENCOUNTER → 2022-11-01 | Outpatient (CLI) | payer BC, MEDICAID ==
[~2022-11-01] MED LIST changes: +ALBU8.5H6 IH; +HYDR50TA76 PO; -RT-ALBUINH IH
== END ==
LOC: CARD 10:14
PROVIDERS: ATTEND Internal Medicine Cardiovascular Disease
DX: I08.0 Rheumatic disorders of both mitral and aortic valves (principal); I10 Essential (primary) hypertension; I25.10 Atherosclerotic heart disease of native coronary artery without angina pectoris
CPT/HCPCS: 93306

== ENCOUNTER 2023-03-06 12:03 | Emergency (ER) | payer MEDICAID ==
[2023-03-06] MEDS ORDERED: NS IV 1000 ML 1,000 ML IV STA (12:19)
[2023-03-06] MEDS ORDERED: fentaNYL INJECTION 100 MCG/2 ML VIAL IVP STA (12:19)
--- NOTE | 2023-03-06 12:31 | ED GU-Female ---
General Chief Complaint: - Reproductive Stated Complaint: UNABLE TO URINATE/BACK PAIN Nursing Triage Note: Patient c/o difficulty urinating with lower Abd. and back pain x 1 wk. Patient states she was sent here from the clinic for further testing. Patient states she was able to give the clinic a UA sample and states it was negative. Patient denies any fevers or N/V/D. Source: patient Exam Limitations: no limitations History of Present Illness Date Seen by Provider: Mar 06, 2023 Time Seen by Provider: 12:29 Initial Comments Patient is a 62-year-old female who presents ED with bilateral lower abdominal pain bilateral flank pain. Symptoms started 1 week ago. Dull pain constant for the past week. Rates pain 10 out of 10. Has been taking ibuprofen and heating pads without much improvement. Patient denies of any specific injury but pain appears to be worse with movement. She reports urge of urinating with decreased urine output. She denies of any nausea, vomiting, diarrhea fever, chills. She states she had a negative urine test performed this past week at [facility]. History of hysterectomy and appendectomy. Denies of any bowel or urine incontinence, saddle paresthesia, lower extremity weakness. Allergies and Home Medications Allergies Coded Allergies: Penicillins (Verified Allergy, Unknown, 11/04/18) azithromycin (Verified Allergy, Unknown, 11/04/18) codeine (Verified Allergy, Unknown, 11/04/18) diazepam (Verified Allergy, Unknown, severe vomiting, 09/30/20) morphine (Verified Allergy, Unknown, 11/04/18) Patient Home Medication List Home Medication List Reviewed: Yes Albuterol Sulfate (Ventolin Hfa) 1 Puff Puff, 2 PUFF IH Q4H PRN for WHEEZING, (Reported) Entered as Reported by: SHAMEKA RODRIGUEZ on 10/01/20 1035 Albuterol Sulfate (Ventolin Hfa) 1 Puff Puff, 2 PUFF INH Q4H Prescribed by: ORLANDO LEA on 04/02/22 1409 Albuterol Sulfate (Ventolin Hfa) 1 Puff Puff, 2 PUFF IH Q4H Prescribed by: REBA SHAIKH MD on 04/05/22 1722 Benzonatate (Tessalon Perles) 100 Mg Capsule, 200 MG PO TID Prescribed by: EMELY MELO on 12/16/21 0002 Cetirizine HCl (Cetirizine HCl) 10 Mg Tablet, 10 MG PO DAILY, (Reported) Entered as Reported by: SHAMEKA RODRIGUEZ on 10/01/20 1035 Ciprofloxacin HCl (Cipro) 500 Mg Tablet, 500 MG PO BID Prescribed by: LAKESHIA PICKETT on 03/06/23 134 Clindamycin HCl (Clindamycin HCl) 300 Mg Capsule, 300 MG PO QID Prescribed by: LOU JO on 04/10/21 213 Doxycycline Hyclate (Doxycycline Hyclate) 100 Mg Tablet, 100 MG PO BID Prescribed by: EMELY MELO on 06/04/211 Fluticasone/Vilanterol (Breo Ellipta 100-25 Mcg INH) 1 Each Blst.w.dev, 1 PUFF IH BID, (Reported) Entered as Reported by: FLACA HARRISON on 07/12/19 151 Hydrocodone/Acetaminophen (Hydrocodone-Acetamin 5-325 mg) 5 Mg-325 Mg Tablet, 1 TAB PO Q4H PRN for PAIN-MODERATE (5-7) Prescribed by: LAKESHIA PICKETT on 03/06/23 134 Hydroxyzine HCl (Hydroxyzine HCl) 50 Mg Tablet, 50 MG PO Q6H Prescribed by: REBA SHAIKH MD on 04/05/22 1722 Ipratropium/Albuterol Sulfate (Iprat-Albut 0.5-3(2.5) mg/3 ml) 0.5 Mg-3 Mg (2.5 Mg Base)/3 Ml Ampul.neb, 3 ML IH QID PRN for SHORTNESS OF BREATH Prescribed by: ORLANDO LEA on 04/02/22 1409 Methylprednisolone (Medrol) 4 Mg Tab.ds.pk, 4 MG PO UD Prescribed by: EMELY MELO on 06/04/21 0002 Metronidazole (Metronidazole) 500 Mg Tablet, 500 MG PO TID Prescribed by: LAKESHIA PICKETT on 03/06/23 134 Prednisone (Prednisone) 50 Mg Tab, 50 MG PO DAILY Prescribed by: ORLANDO LEA on 04/02/22 1411 Umeclidinium [place] (Incruse Ellipta) 62.5 Mcg Blst.w.dev, 62.5 MCG IH DAILY, (Reported) Entered as Reported by: SHAMEKA RODRIGUEZ on 10/01/20 1035 Review of Systems Review of Systems Constitutional: No chills, No diaphoresis EENTM: No ear pain, No blurred vision, No double vision Respiratory: No cough, No short of breath, No wheezing Gastrointestinal: abdominal pain; No diarrhea, No nausea Genitourinary: denies burning, denies discharge; urgency Musculoskeletal: back pain; No joint pain Skin: No change in color, No change in hair/nails All Other Systemes Reviewed Negative Unless Noted: Yes Past Oizqjde-Wywiyp-Cdybjx Hx Patient Social History Tobacco Use?: Yes Tobacco type used: Cigarettes Smoking Status: Current Everyday Smoker Use of E-Cig and/or Vaping dev: No Substance use?: No Alcohol Use?: No Pt feels they are or have been: No Immunizations Up To Date Tetanus Booster (TDap): Unknown PED Vaccines UTD: Yes Influenza Vaccine Up-to-Date: No; Not Current First/Initial COVID19 Vaccinat: YES Second COVID19 Vaccination Marcelino: YES Third COVID19 Vaccination Date: YES Seasonal Allergies Seasonal Allergies: No Past Medical History Surgery/Hospitalization HX: HYSTERECTOMY, APPY, CARPEL TUNNEL, BILATERAL CATARACT SURGERY ASTHMA, COPD, DM Surgeries: Yes (CARPAL TUNNEL) Appendectomy, Eye Surgery, Hysterectomy Respiratory: Yes Asthma, COPD Cardiac: No 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 oz. 75.573148yt; 28.00 BMI Method:Stated General Appearance: WD/WN, no apparent distress HEENT: PERRL/EOMI, normal ENT inspection, TMs normal, pharynx normal Neck: non-tender, full range of motion, supple Cardiovascular: regular rate, rhythm, no edema, no gallop, no JVD Respiratory: chest non-tender, lungs clear, normal breath sounds, no respiratory distress, no accessory muscle use Gastrointestinal: normal bowel sounds, soft, no organomegaly, tenderness (Bilateral lower abdominal tenderness. 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, no motor/sensory deficits, alert, normal mood/affect, oriented x 3 Skin: normal color, warm/dry Progress/Results/Core Measures Suspected Sepsis SIRS Temperature: Pulse: 100 Respiratory Rate: 18 Laboratory Tests 03/06/23 12:27: White Blood Count 9.3 Blood Pressure 132 /75 Mean: 94 Laboratory Tests 03/06/23 12:27: Creatinine 0.86, Platelet Count 237, Total Bilirubin 0.4 Results/Orders Lab Results Laboratory Tests Test 03/06/23 12:27 03/06/23 13:09 Range/Units White Blood Count 9.3 4.3-11.0 10^3/uL Red Blood Count 4.66 3.80-5.11 10^6/uL Hemoglobin 13.4 11.5-16.0 g/dL Hematocrit 42 35-52 % Mean Corpuscular Volume 90 80-99 fL Mean Corpuscular Hemoglobin 29 25-34 pg Mean Corpuscular Hemoglobin Concent 32 32-36 g/dL Red Cell Distribution Width 13.0 10.0-14.5 % Platelet Count 237 130-400 10^3/uL Mean Platelet Volume 10.3 9.0-12.2 fL Immature Granulocyte % (Auto) 0 % Neutrophils (%) (Auto) 65 42-75 % Lymphocytes (%) (Auto) 26 12-44 % Monocytes (%) (Auto) 6 0-12 % Eosinophils (%) (Auto) 1 0-10 % Basophils (%) (Auto) 1 0-10 % Neutrophils # (Auto) 6.1 1.8-7.8 10^3/uL Lymphocytes # (Auto) 2.5 1.0-4.0 10^3/uL Monocytes # (Auto) 0.6 0.0-1.0 10^3/uL Eosinophils # (Auto) 0.1 0.0-0.3 10^3/uL Basophils # (Auto) 0.1 0.0-0.1 10^3/uL Immature Granulocyte # (Auto) 0.0 0.0-0.1 10^3/uL Sodium Level 138 135-145 MMOL/L Potassium Level 4.5 3.6-5.0 MMOL/L Chloride Level 108 H 98-107 MMOL/L Carbon Dioxide Level 21 21-32 MMOL/L Anion Gap 9 5-14 MMOL/L Blood Urea Nitrogen 11 7-18 MG/DL Creatinine 0.86 0.60-1.30 MG/DL Estimat Glomerular Filtration Rate 77 BUN/Creatinine Ratio 13 Glucose Level 94 70-105 MG/DL Calcium Level 9.5 8.5-10.1 MG/DL Corrected Calcium 9.2 8.5-10.1 MG/DL Total Bilirubin 0.4 0.1-1.0 MG/DL Aspartate Amino Transf (AST/SGOT) 14 5-34 U/L Alanine Aminotransferase (ALT/SGPT) 12 0-55 U/L Alkaline Phosphatase 120 40-136 U/L Total Protein 7.5 6.4-8.2 GM/DL Albumin 4.4 3.2-4.5 GM/DL Lipase 62 8-78 U/L Urine Color YELLOW Urine Clarity CLEAR Urine pH 6.0 5-9 Urine Specific [place] 1.010 L 1.016-1.022 Urine Protein NEGATIVE NEGATIVE Urine Glucose (UA) NEGATIVE NEGATIVE Urine Ketones NEGATIVE NEGATIVE Urine Nitrite NEGATIVE NEGATIVE Urine Bilirubin NEGATIVE NEGATIVE Urine Urobilinogen 0.2 < = 1.0 MG/DL Urine Leukocyte Esterase NEGATIVE NEGATIVE Urine RBC (Auto) TRACE H NEGATIVE Urine RBC NONE /HPF Urine WBC NONE /HPF Urine Squamous Epithelial Cells 0-2 /HPF Urine Crystals NONE /LPF Urine Bacteria NEGATIVE /HPF Urine Casts NONE /LPF Urine Mucus NEGATIVE /LPF Urine Culture Indicated NO My Orders Orders - LOU NGUYEN PA Ua Culture If Indicated (03/06/23 12:07) Cbc With Automated Diff (03/06/23 12:19) Comprehensive Metabolic Panel (03/06/23 12:19) Lipase (03/06/23 12:19) Ct Abdomen/Pelvis W (03/06/23 12:19) Ns Iv 1000 Ml (Ns Iv 1000 Ml) (03/06/23 12:19) Fentanyl Injection (Fentanyl Injection (03/06/23 12:19) Iohexol Injection (Omnipaque 350 Mg/Ml 1 (03/06/23 13:15) Received Contrast (Hold Metformin- Contr (03/06/23 13:15) Ns (Ivpb) 100 Ml (Sodium Chloride 0.9% 1 (03/06/23 13:15) Iohexol Injection (Omnipaque 350 Mg/Ml 1 (03/06/23 13:15) Received Contrast (Hold Metformin- Contr (03/06/23 13:15) Ns (Ivpb) 100 Ml (Sodium Chloride 0.9% 1 (03/06/23 13:15) Medications Given in ED Current Medications Medications Dose Ordered Sig/Judy Route Start Time Stop Time Status Last Admin Dose Admin Iohexol 100 ml ONCE ONCE IV 03/06/23 13:15 03/06/23 13:16 DC 03/06/23 13:15 80 ML Sodium Chloride 100 ml ONCE ONCE IV 03/06/23 13:15 03/06/23 13:16 DC 03/06/23 13:15 100 ML Vital Signs/I&O 03/06/23 03/06/23 12:11 13:53 Temp 36.4 Pulse 100 86 Resp 18 16 B/P (MAP) 132/75 (94) 117/73 Pulse Ox 97 O2 Delivery Room Air Room Air Capillary Refill : Blood Pressure Mean: 94 Departure Communication (PCP) Reviewed previous ER visits, H&P, lab testing. Differential diagnosis, cysti tis, urolithiasis, nephrolithiasis, colitis, diverticulitis. Patient with bilateral lower abdominal pain bilateral flank pain for the past week. Appears to be worse with positional changes or movement. She has no bowel or urine incontinence or saddle paresthesia. She does have some urine urgency without hematuria or frequent urination. She denies nausea vomiting diarrhea. History of hysterectomy and appendectomy. She had a negative urinalysis outpatient [facility] this past week. Patient with bilateral lower abdominal tenderness and bilateral flank tenderness. CBC, CMP, lipase, urinalysis was ordered. CBC, CMP grossly unremarkable. Urinalysis without evidence of infection small amount of red blood cells. She received a dose of fentanyl with some improvement of pain. CT abdomen pelvis shows mural thickening involving a large portion of the colon with associated fat stranding about the transverse colon. Findings are concerning for underlying colitis. No history of inflammatory bowel disease. Recent antibiotic use for bronchitis. She just recently finished prednisone. She denies any diarrhea, bloody, mucousy stools or known odor. She was not able to provide a stool sample here. Infectious versus inflammatory etiology. She does have a age-indeterminate mild superior endplate compression deformity of L4 and inferior endplate irregularity of L3. She does have pain throughout the back but no specific lumbar midline tenderness at this time. No recent falls. She has no neurological red flag findings. Pain improved. I suspect the lower back pain is more musculoskeletal. Due to the weeklong pain in her abdomen with potential underlying colitis will discharge with Cipro and Flagyl. I do think further evaluation with colonoscopy is needed. She denies a previous colonoscopy. Recommend clear liquid diet for the next 2 to 3 days. If any worsening pain return back to ED. Follow-up your PCP in 2 to 3 days for reevaluation. Will discharge a few days worth of pain medication. Recommend an ti-inflammatories, heat, lidocaine patches. Impression Primary Impression: Colitis Additional Impression: Low back pain Disposition: HOME, SELF-CARE Condition: Stable Departure-Patient Inst. Decision time for Depature: 13:41 Referrals: DIDIER JOLLEY APRN (PCP) Primary Care Physician [facility] (Family) Primary Care Physician LEIGH BEAVER DO Patient Instructions: Colitis (DC) Add. Discharge Instructions: Needed follow-up your primary care physician for further evaluation of the colitis and low back pain. Take antibiotic as prescribed. Recommend probiotic. Stretching. Continue with heating pad All discharge instructions reviewed with patient and/or family. Voiced understanding. Scripts Hydrocodone/Acetaminophen (Hydrocodone-Acetamin 5-325 mg) 5 Mg-325 Mg Tablet 1 TAB PO Q4H PRN for PAIN-MODERATE (5-7), #6 TAB Prov: LOU NGUYEN 03/06/23 Metronidazole (Metronidazole) 500 Mg Tablet 500 MG PO TID for 5 Days, #21 TAB Prov: LOU NGUYEN 03/06/23 Ciprofloxacin HCl (Cipro) 500 Mg Tablet 500 MG PO BID for 5 Days, #10 TAB Prov: LOU NGUYEN 03/06/23 LOU NGUYEN Mar 06, 2023 12:31
[2023-03-06 12:38] LABS: BASOPHILS # (AUTO) 0.1 10^3/uL (0.0-0.1); BASOPHILS % (AUTO) 1 % (0-10); EOSINOPHILS # (AUTO) 0.1 10^3/uL (0.0-0.3); EOSINOPHILS % (AUTO) 1 % (0-10); HEMATOCRIT 42 % (35-52); HEMOGLOBIN 13.4 g/dL (11.5-16.0); LYMPHOCYTES # (AUTO) 2.5 10^3/uL (1.0-4.0); LYMPHOCYTES % (AUTO) 26 % (12-44); MEAN CORPUSCULAR HEMOGLOBIN 29 pg (25-34); MEAN CORPUSCULAR HGB CONC 32 g/dL (32-36); MEAN CORPUSCULAR VOLUME 90 fL (80-99); MEAN PLATELET VOLUME 10.3 fL (9.0-12.2); MONOCYTES # (AUTO) 0.6 10^3/uL (0.0-1.0); MONOCYTES % (AUTO) 6 % (0-12); NEUTROPHILS # (AUTO) 6.1 10^3/uL (1.8-7.8); NEUTROPHILS % (AUTO) 65 % (42-75); PLATELET COUNT 237 10^3/uL (130-400); WHITE BLOOD COUNT 9.3 10^3/uL (4.3-11.0)
[2023-03-06 12:45] LABS: ALBUMIN 4.4 GM/DL (3.2-4.5)
[2023-03-06 12:46] LABS: POTASSIUM 4.5 MMOL/L (3.6-5.0)
[2023-03-06 12:47] LABS: CALCIUM 9.5 MG/DL (8.5-10.1)
[2023-03-06 12:48] LABS: TOTAL PROTEIN 7.5 GM/DL (6.4-8.2)
[2023-03-06 12:50] LABS: BILIRUBIN,TOTAL 0.4 MG/DL (0.1-1.0)
[2023-03-06 12:52] LABS: CREATININE SERUM 0.86 MG/DL (0.60-1.30)
[2023-03-06] MEDS ORDERED: HOLD METFORMIN - RECEIVED CONTRAST 20 ML VIAL IV SCH ×2 (13:15)
[2023-03-06] MEDS ORDERED: NS 100 ML (IVPB) BAG IV ONE ×2 (13:15)
[2023-03-06] MEDS ORDERED: IOHEXOL 350 MG/ML 100 ML (OMNIPAQUE 350) VIAL IV ONE ×2 (13:15)
[2023-03-06 13:30] LABS: CLARITY,URINE CLEAR; COLOR,URINE YELLOW; PROTEIN,URINE NEGATIVE (NEGATIVE)
[2023-03-06 13:31] LABS: BACTERIA,URINE NEGATIVE /HPF; BILIRUBIN,URINE NEGATIVE (NEGATIVE); GLUCOSE, URINE (UA) NEGATIVE (NEGATIVE); KETONES,URINE NEGATIVE (NEGATIVE); LEUKOCYTE ESTERASE ,URINE NEGATIVE (NEGATIVE); NITRITE,URINE NEGATIVE (NEGATIVE); SQUAMOUS EPITHELIAL CELL,UR 0-2 /HPF
--- NOTE | 2023-03-06 13:33 | Diagnostic Imaging Report ---
PROCEDURE: CT abdomen and pelvis with contrast. TECHNIQUE: Multiple contiguous axial images were obtained through the abdomen and pelvis after administration of intravenous contrast. Auto Exposure Controls were utilized during the CT exam to meet ALARA standards for radiation dose reduction. All CT scans use one or more of the following dose optimizing techniques: automated exposure control, MA and/or KvP adjustment based on patient size and exam type or iterative reconstruction. INDICATION: Bilateral lower abdominal pain, flank pain, dysuria. COMPARISON: None available. FINDINGS: Calcified granuloma within the left lower lobe. Minimal left basilar scarring and/atelectasis. Calcified splenic granuloma. The liver is unremarkable. The adrenal glands are unremarkable. The pancreas is unremarkable. Small duodenal diverticulum involving the fourth portion of the duodenum without adjacent inflammatory stranding. Additional jejunal diverticulum. The gallbladder is unremarkable. The bilateral kidneys and ureters are unremarkable. Mild vascular calcifications within the abdominal aorta and its branch vessels without aneurysm of the abdominal aorta. The urinary bladder is unremarkable. The uterus is not visualized, likely surgically absent. No abnormal adnexal mass lesion. Mild colonic diverticulosis. Mural thickening of the ascending colon, transverse colon, and proximal descending colon is present. This is associated with minimal adjacent fat stranding adjacent to the transverse colon. No bowel obstruction or pneumatosis. No significant adenopathy, free air, or free fluid. Age-indeterminate mild superior endplate compression deformity of L4 with minimal lucency and sclerosis present and approximately 20% loss of vertebral body height. Inferior Schmorl's node involving L2. Irregularity of the inferior endplate of L3 is also noted. Scattered osseous degenerative changes. IMPRESSION: Mural thickening involving a large portion of the colon with associated fat stranding about the transverse colon. Findings are favored to relate to underlying colitis. No evidence of bowel obstruction. Age-indeterminate mild superior endplate compression deformity of L4 and inferior endplate irregularity of L3. Recommend correlation for focal pain at this location. Evidence of chronic granulomatous disease. Additional findings, as above. Dictated by: Dictated on workstation # [id number]
[2023-03-06] MEDS ORDERED: CIPR-225 PO (13:43)
[2023-03-06] MEDS ORDERED: ACHD5005 PO (13:43)
[2023-03-06] MEDS ORDERED: METR-145 PO (13:43)
[2023-03-06 13:53] VITALS: BP 117/73
== END 2023-03-06 13:53 | disposition home or self-care (01) ==
LOC: EDUNIT# 12:03 → ER 12:05
DX: K52.9 Noninfective gastroenteritis and colitis, unspecified (principal); M54.50 Low back pain, unspecified; F17.210 Nicotine dependence, cigarettes, uncomplicated
CPT/HCPCS: 36415; 74177; 80053; 81000; 83690; 85025

== ENCOUNTER → 2023-04-18 | Outpatient (CLI) | payer MEDICAID ==
[~2023-04-18] VITALS: Ht 160 cm; Wt 71.3 kg
[~2023-04-18] MED LIST changes: +ACHD5005 PO; +BROM118S61 PO; +CIPR-225 PO; -D-ME118S33 PO; +METR-145 PO
== END | disposition home or self-care (01) ==
LOC: PREOP 08:22
PROVIDERS: ATTEND Specialist
DX: Z01.818 Encounter for other preprocedural examination (principal)

== ENCOUNTER 2023-04-22 10:46 | Day surgery (SDC) | payer MEDICAID ==
[~2023-04-22] VITALS: Ht 152 cm; Wt 71.3 kg
[2023-04-22] MEDS: TETRACAINE 0.5% OPHTH SOLN 4 ML BTL (SINGLE DOSE ONLY) OU PRN ×3 (11:32→11:42)
[2023-04-22 11:34] VITALS: BP 114/66
[2023-04-22] MEDS: TROPICAMIDE 1% OPH SOLN (MYDRIACYL) 15 ML BTL OU PRN ×2 (11:37→11:42)
[2023-04-22] MEDS: PHENYLEPHRINE 10% OPHTH SOLN 5 ML BTL OU PRN ×2 (11:37→11:42)
[2023-04-22] MEDS ORDERED: TETRACAINE 0.5% OPHTH SOLN 5 ML BTL OU PRN (11:45)
--- NOTE | 2023-04-22 12:38 | Ophthalmologist Pre-Op Note ---
Pre-Operative Progress Note H&P Reviewed The H&P was reviewed, patient examined and no changes noted. Date H&P Reviewed: Apr 22, 2023 Time H&P Reviewed: 11:11 Pre-Op Dx Secondary Cataract, Right Eye DEZ SHOOK MD Apr 22, 2023 12:38
--- NOTE | 2023-04-22 12:39 | Ophthalmology Operative Report ---
YAG Capsulotomy PREOPERATIVE DIAGNOSIS: Secondary Cataract Left Eye POSTOPERATIVE DIAGNOSIS: Secondary Cataract Left Eye PROCEDURE: YAG Capsulotomy, left eye SURGEON: Vinnie Shook ANESTHESIA: Topical anesthesia COMPLICATIONS: None ESTIMATED BLOOD LOSS: Minimal DESCRIPTION OF PROCEDURE: After proper informed consent was obtained, the patient's, a 63 female left eye received one drop of Tropicamide and one drop of Tetracaine. The patient was then placed at the YAG laser and using a power of [4.5 ] millijoules and [ 17] bursts were used to fashion a central capsulotomy. The patient tolerated the procedure well without complications. VINNIE SHOOK MD Apr 22, 2023 12:38
== END 2023-04-22 11:50 | disposition home or self-care (01) ==
LOC: SDC 10:46
PROVIDERS: ATTEND Specialist
DX: E11.36 Type 2 diabetes mellitus with diabetic cataract (principal); H26.40 Unspecified secondary cataract; F17.200 Nicotine dependence, unspecified, uncomplicated